=== PATIENT | female | born 1940 | race Caucasian/White ===

== ENCOUNTER 2025-03-03 13:42 | Outpatient (AMB) | payer MEDICARE, SELFPAY ==
--- NOTE | 2025-03-03 13:43 | MHC.OFFVIS ---
Vital Signs 03/03/25 13:46 Height 5 ft 6 in Weight 175 lb BMI 28.2 BP 147/60 H Blood Pressure Location Rt brachial Position Sitting Pulse 96 Pulse Source Pulse Oximeter Pulse Oximetry (%) 96 Oxygen Delivery Method Room Air Intake Visit Reasons: Abnormal CT Scan Allergies No Known Allergies Allergy (Verified 03/03/25 13:51) HPI Comments Details: The patient is here for pulmonary evaluation patient is an 84 year woman with a known history of worsening cough chest congestion for the last several months if not years. She is here with her daughter. The patient was initially evaluated locally in the [place] area for her respiratory complaints. She did undergo pulmonary function studies back in 2023 which I personally reviewed demonstrating a mild restrictive ventilatory defect in addition to moderate to severe diffusion impairment. Therefore she did undergo imaging studies. Back in November of 2024 she actually had a CT scan of the chest at [facility] which I personally reviewed demonstrating some interstitial lung disease primarily the bases left more than right with traction bronchiectasis and underlying pulmonary nodules measuring up to 8 mm in size. Overall she is doing little better her cough which tends to be productive in nature is decreasing amount. We do not have a sputum sample available at this time. Will go ahead and request blood work. In addition to start CPT with an Acapella valve. She does have difficulty sleeping at nighttime. Does have shortness shortness of breath. May have a component of nocturnal hypoxia. Will go ahead and request an overnight oximetry. Based on the findings on the CAT scan and also her ongoing cough and chest congestion at times brings up the possibility of microaspiration. Will go ahead and request a barium swallow to be done to further address the potential etiologies of the interstitial lung disease. She already saw Allergy and immunology and she had blood work done although I do not have the access to the blood work. Will do additional blood work at this time. The patient follow-up in 2-3 months after getting her overnight oximetry and CT scan of the chest to follow-up with the pulmonary nodules and also the barium swallow in the blood work. She will start using the CPT device with the Acapella valve to try to help clear the lungs. If she is able to provide a sputum I did put an order in in order for her to do so. [facility] Medical History (Updated 03/03/25 @ 21:09 by Lino Mcnamara MD) Asthma ILD (interstitial lung disease) Pulmonary nodules Bronchiectasis Review of Systems Const Denies fever(s) ENT Reports nasal discharge Card Denies chest pain and Reports dyspnea on exertion Resp Reports chest congestion, Reports cough and Reports dyspnea on exertion GI Reports dyspepsia and Reports heartburn Musc Reports abnormal gait and Reports myalgias Skin/Breast Denies rash Neuro Reports abnormal gait Jose/Lymph Reports no additional complaints Physical Exam Vital Signs: Last Vital Signs Pulse 96 03/03/25 13:46 BP 147/60 H 03/03/25 13:46 Pulse Ox 96 03/03/25 13:46 Oxygen Delivery Method Room Air 03/03/25 13:46 BMI result Body Mass Index 28.2 Const General: comfortable Limitations: physical limitations, ambulation with walker and wheelchair HEENT Head: Yes normocephalic Neck Neck: Yes supple Chest Chest palpation & inspection: normal inspection of the chest Resp Effort & Inspection: normal respiratory effort Auscultation: rales bilateral at the base and diminished lung sounds Cardio Heart sounds: S1 normal heart sound present, S2 normal heart sound present and Murmur heart sound present GI Palpation (GI): Soft to palpation Skin General skin exam: no rashes or lesions noted Extrem General: No clubbing and No cyanosis Office Procedures 6 Minute Walk Time:: 14:00 SPO2 % at rest: 95 Pulse at rest: 97 SPO2 % during excercise: 91 Pulse during excercise: 115 SPO2 % after excercise: 93 Pulse after excercise: 100 Distance in yards walked: 80 Marco Score: 0 Performance Observations:: Shavonne walked on level ground with the assistance of a walker, she walked with a slow gait. She maintained her SPO2 95-91% on room air for the entire walk. No supplemental O2 needed. [address] - 6 Minute Walk Assessment & Plan Assessment & Plan (1) Bronchiectasis: Code(s): J47.9 - Bronchiectasis, uncomplicated Category: Medical Qualifiers: Bronchiectasis type: uncomplicated Qualified Code(s): J47.9 - Bronchiectasis, uncomplicated (2) Pulmonary nodules: Code(s): R91.8 - Other nonspecific abnormal finding of lung field Category: Medical (3) ILD (interstitial lung disease): Code(s): J84.9 - Interstitial pulmonary disease, unspecified Category: Medical (4) Asthma: Code(s): J45.909 - Unspecified asthma, uncomplicated Category: Medical Qualifiers: Asthma severity: moderate Asthma persistence: persistent Asthma complication type: uncomplicated Qualified Code(s): J45.40 - Moderate persistent asthma, uncomplicated Plan CPT with acapella valve Overnight oximetry TIFFANY as needed Bloodwork, bloodgas CT chest to reassess pulmonary nodules Barium swallow Needs to sleep with head of bed elevated with bed risers at the head of the bed F/U 2 months Orders: Orders Hypersensitive Pneumonitis Prf Today J47.9 - Bronchiectasis, uncomplicated, R91.8 - Other nonspecific abnormal finding of lung field TAVO Reflex Titer and Pattern Today J47.9 - Bronchiectasis, uncomplicated, R91.8 - Other nonspecific abnormal finding of lung field Erythrocyte Sedimentation Rate Today J47.9 - Bronchiectasis, uncomplicated, R91.8 - Other nonspecific abnormal finding of lung field Overnight Pulse Oximetry Today FL barium swallow Today K21.9 - Gastro-esophageal reflux disease without esophagitis Venous Blood Gas Today J47.9 - Bronchiectasis, uncomplicated, R91.8 - Other nonspecific abnormal finding of lung field Complete Blood Count Auto Diff Today J47.9 - Bronchiectasis, uncomplicated, R91.8 - Other nonspecific abnormal finding of lung field Basic Metabolic Panel Today J47.9 - Bronchiectasis, uncomplicated, R91.8 - Other nonspecific abnormal finding of lung field Immunoglobulins,IgG IgA IgM Today J47.9 - Bronchiectasis, uncomplicated, R91.8 - Other nonspecific abnormal finding of lung field Immunoglobulin G Subclasses Today J47.9 - Bronchiectasis, uncomplicated, R91.8 - Other nonspecific abnormal finding of lung field Immunoglobulin E Today J47.9 - Bronchiectasis, uncomplicated, R91.8 - Other nonspecific abnormal finding of lung field AMB 6 minute walk Today J47.9 - Bronchiectasis, uncomplicated CT chest wo IV con 1 Month J47.9 - Bronchiectasis, uncomplicated, J84.9 - Interstitial pulmonary disease, unspecified, R91.8 - Other nonspecific abnormal finding of lung field Coding Level of Care Code New Pt Level 5 (35266) Diagnoses Bronchiectasis without complication J47.9 Bronchiectasis type: uncomplicated Pulmonary nodules R91.8 ILD (interstitial lung disease) J84.9 Moderate persistent asthma without complication J45.40 Asthma severity: moderate Asthma persistence: persistent Asthma complication type: uncomplicated CPT Codes Coding ([id number]) Time Spent (min) 60
[2025-03-03 13:46] VITALS: BP 147/60; PULSE 96; O2SAT 96; BMI 28.2
--- OUTSIDE RECORDS SUMMARY | 2025-03-03 14:51 | XMS_ITS | Data Portability ---
Author Organization [place] - [facility], Allergy Address [address] [address] Care Team Providers Care Air Conditioning Manager Name Role Phone FELIPE CROOK Primary Care Provider [phone] Assessment Encounter Date Assessment Date Assessment LastModified by Organization Details LastModified Time 06/23/2024 06/23/2024 Recommendations: Follow up with referring provider. Amplification, pending medical clearance. [email or web address] Not available 06/23/2024 09:29:56 10/13/2024 10/13/2024 84-year-old mykel fritz with history of GERD presents for evaluation of chronic productive cough x3 months. Posterior pharynx with mild erythema and cobblestoning. Fiberoptic laryngoscopy demonstrates cobblestoning without masses or obstruction. History and exam are consistent with GERD. Recommend Omeprazole 20 mg once daily for 6 weeks, reviewed administration instructions. Reviewed supportive measures for GERD. Will consider referral to gastroenterology for nursing home management if symptoms do not improve. The patient will follow up in 8 weeks for reevaluation. [email or web address] Not available 10/13/2024 13:25:30 01/05/2025 01/05/2025 84-year-old mykel fritz with GERD presents with [employer]ISTERED [employer] ASSOCIATE for evaluation of chronic productive cough x3 months. She reports significant symptom improvement with Omeprazole for 6 weeks, although she continues to report intermittent heartburn. She denies dysphagia, globus, itchy throat, or postnasal drip. Oropharyngeal exam is benign today. I will refer to gastroenterology for nursing home management as the symptoms are gastrointestinal in etiology. She will continue the PPI as needed in the interim. The patient will follow up in our office as needed. [email or web address] Not available 01/05/2025 14:13:19 Plan of Treatment Reminders Order Date Submit Date Provider Last Modified By Organization Details Last Modified Time Details Appointments Heari ng Test 2024 09:30A M Hearing Test Not available Not available Not available Estab lishe d 30 2024 10:00A M LIAM Mendez MD Not available Not available Not available Lab None recor ded. Referral gastr steve montes de oca ist refer ral 2024 025 [facility] Gastroenterology Scheduling Department, [address] [facility] [address], [place], [address], 01/12/2025 14:42:12 Procedures None recor ded. Surgeries None recor ded. Imaging None recor ded. Medication Orders omepr azole 20 mg capsu le,de layed relea se 2024 025 [id number], [address] [place], [place], [id number], 10/13/2024 13:19:18 Patient TargetsNo targets recorded. Patient InstructionsNo instructions recorded. Reason for Referral Supervisor Instrument Mechanics Referral for Gastroesophageal reflux disease without esophagitis Referring Physician: Lea Quintanilla, Otolaryngology, Encounter Date: 01/05/2025 Results Created Date Observation Date Name Description Value Unit Range Abnormal Flag Note LastModifiedBy Organization Detail LastModifiedTime 06/24/20 24 06/23/2024 audio gram No observ ation record ed. [email or web address] [facility] [address] [facility] [place], [address], 06/24/2024 15:37:55 Result Notes None recorded. Problems Name Problem SNOMED Code Status Onset Date Resolution Date Notes Provider Name and Address Organization Details Recorded Time Impacted cerumen of bilateral ears 83690128399 14129 Active 2017 Impacted cerumen, bilateral ; Note: Date Diagnosed : 07/10/2018 2:11 PM (H61.23) Not Available [facility] 02:31:48 Dizziness and giddiness 644730375 Active 2017 Dizziness and giddiness ; Note: Date Diagnosed : 07/10/2018 2:37 PM (R42) Not Available [facility] 4 02:31:52 Sensorine ural hearing loss of bilateral ears 356778144 Active 2017 Sensorine ural hearing loss, bilateral ; Note: Date Diagnosed : 07/10/2018 2:37 PM (H90.3) Not Available [facility] 4 02:32:05 Impacted cerumen 80881745 Active 2014 Impacted cerumen; CMS Risk: low risk CMS Treatment : new problem (to examiner) : no additiona l workup planned Not Available [facility] 4 02:31:48 Cough 89437911 Active 2024 LEA QUINTANILLA PA-C [address] [facility] [address], [place], [address] , [place] - [facility] 5 12:55:28 Gastroeso phageal reflux disease without esophagit is 368143643 Active 2024 LEA QUINTANILLA PA-C [address] [facility] [address] [address], [place], [address] , [place] [facility] 13:25:45 Dysphagia 51560561 Active 2024 LEA QUINTANILLA PA-C [address] [facility] [facility] [address], [place], [address] , [place] [facility] 13:37:10 Problem Notes None recorded. Procedures Surgical History Date Name Laterality Status Provider Name and Address Organization Details Recorded Time 10/13/2024 FOL_Reflux_ JMS completed LEA QUINTANILLA PA-C [address] [facility] [facility] [address] [address], [place], [address], [place] - [facility] 10/13/2024 13:22:17 06/23/2024 Air & Speech Audio with Tymps - 62728, 52635 & 95837 completed BUCKY TORREZ [address],[place] [address], [place], [address], [place] [facility] 06/23/2024 09:29:20 Imaging Results None recorded. Procedure Notes None recorded. Medical Equipment None Reported. Allergies Allergen ID Allergen Name Allergen Category Reaction Reaction Severity Criticality Documentation Date Start Date Code Code System Note Provider Name and Address Organization Details Recorded Time 55483 tetracycl ine medicatio n other Not available Not available 01/15/2024 39864 RxNorm React ion: Unkno wn; Not Available [facility] 01:05:21 Medications Name Sig Start Date Stop Date Status Note LastModified by Organization Details LastModified Time prednison e 10 mg tablet active Not Available Not Available Not Available clonidine 0.1 mg/24 hr weekly transderm al patch 2014 active Medicati on ID: [id number] Du ration Value: 28 Brand Name: clonidin e Send Method: E-Prescr ibed Sub s Allowed: subs OK Medic ationGen ericName : clonidin e Not Available Not Available Not Available albuterol sulfate 2.5 mg/3 mL (0.083 %) solution for nebulizat ion USE 3 ML VIA NEBULIZE R EVERY 6 HOURS NEEDED active Not Available Not Available No t Available cefpodoxi me 200 mg tablet TAKE 1 TABLET BY MOUTH EVERY 12 HOURS WITH FOOD FOR 7 DAYS 01/05 completed Not Available Not Available Not Available azithromy jericho 250 mg tablet 01/05 completed Not Available Not Available Not Available benzonata te 200 mg capsule TAKE 1 CAPSULE BY MOUTH THREE TIMES DAILY FOR 7 DAYS NEEDED FOR COUGH 01/05 completed Not Available Not Available Not Available amlodipin e 5 mg tablet TAKE 1 TABLET BY MOUTH DAILY active Not Available Not Available No t Available sulfameth oxazole 800 mg-trimet hoprim 160 mg tablet TAKE 1 TABLET BY MOUTH TWICE DAILY FOR 7 DAYS 01/05 completed Not Available Not Available Not Available lorazepam 0.5 mg tablet TAKE 1 TABLET BY MOUTH ONCE A DAY NEEDED FOR 30 DAYS active Not Available Not Available No t Available meclizine 25 mg tablet 01/05 completed Medicati on ID: [id number] D uration Value: 10 Brand Name: meclizin e Send Method: E-Prescr ibed Sub s Allowed: subs OK Speci al Instruct ion: take 1 tablet by mouth every 12 hours if needed M edicatio nGeneric Name: meclizin e Not Available Not Available Not Available benzonata te 100 mg capsule TAKE 1 CAPSULE BY MOUTH THREE TIMES DAILY FOR 10 DAYS NEEDED 01/05 completed Not Available Not Available Not Available omeprazol e 20 mg capsule,d elayed release TAKE ONE CAPSULE BY MOUTH EVERY DAY BEFORE A MEAL FOR 42 DAYS FOR REFLUX active Not Available Not Available No t Available methylpre dnisolone 4 mg tablets in a dose pack FOLLOW PACKAGE DIRECTIO NS 01/05 completed Not Available Not Available Not Available albuterol sulfate HFA 90 mcg/actua tion aerosol inhaler INHALE 2 PUFFS BY MOUTH EVERY 6 HOURS NEEDED FOR WHEEING/ SHORTNES S OF BREATH USE WITH SPACER CHAMBER active Not Available Not Available No t Available ondansetr on 4 mg disintegr ating tablet PLACE 1 TABLET ON THE TONGUE AND ALLOW TO DISSOLVE TWICE DAILY NEEDED FOR 7 DAYS 01/05 completed Not Available Not Available Not Available fluticaso ne propionat e 50 mcg/actua tion nasal spray,des pension SHAKE LIQUID AND USE 1 SPRAY IN EACH NOSTRIL TWICE DAILY active Not Available Not Available No t Available doxycycli ne hyclate 100 mg tablet TAKE 1 TABLET BY MOUTH TWICE DAILY FOR 10 DAYS active Not Available Not Available No t Available ramipril 10 mg capsule TAKE 2 CAPSULES BY MOUTH DAILY active Not Available Not Available No t Available amoxicill in 875 mg-potass ium clavulana te 125 mg tablet TAKE 1 TABLET BY MOUTH EVERY 12 HOURS FOR 10 DAYS 01/05 completed Not Available Not Available Not Available escitalop jorge 10 mg tablet 2014 active Medicati on ID: [id number] Du ration Value: 30 Brand Name: escitalo pram oxalate Send Method: E-Prescr ibed Sub s Allowed: subs OK Speci al Instruct ion: take 1.5 Tablet by oral route every day Medi cationGe nericNam e: escitalo pram oxalate Not Available Not Available Not Available escitalop jorge 20 mg tablet TAKE 1 TABLET BY MOUTH DAILY active Not Available Not Available No t Available rosuvasta tin 5 mg tablet TAKE 1 TABLET BY MOUTH EVERY DAY active Not Available Not Available No t Available rosuvasta tin 10 mg tablet TAKE 1 TABLET BY MOUTH EVERY DAY active Not Available Not Available No t Available nitrofura ntoin monohydra te/macroc rystals 100 mg capsule TAKE 1 CAPSULE BY MOUTH EVERY 12 HOURS WITH FOOD FOR 5 DAYS 01/05 completed Not Available Not Available Not Available OptiChamb er Saba [facility] spacer USE WITH INHALER DIRECTED active Not Available Not Available No t Available Vitals Date Recorded Body height Body mass index (BMI) Body weight Provider Name and Address Organization Details Last Updated DateTime 10/13/2024 165.1 cm 30.6 kg/m2 88671 g Gloria Turner [facility] 10/13/2024 12:51:45 Date Recorded Body height Body mass index (BMI) Body weight Provider Name and Address Organization Details Last Updated DateTime 01/05/2025 165.1 cm 30 kg/m2 53423.63 g Noni Shayan [facility] 01/05/2025 13:31:16 Date Recorded Body height Body mass index (BMI) Body weight Provider Name and Address Organization Details Last Updated DateTime 06/23/2024 165.1 cm 30.6 kg/m2 81991 g Doreen Reyes [facility] 06/23/2024 09:35:20 Social History None recorded. Functional Status None recorded. Mental Status None recorded. Family History Nothing Reported. Medical History No medical history recorded. Gynecological HistoryNo gynecological history recorded. Obstetrics History GPAL:G 0 P 0 0 0 0 Past Encounters Encounter ID Performer Location Encounter Start Date Encounter Closed Date Diagnosis/Indication Diagnosis SNOMED-CT Code Diagnosis ICD10 Code Diagnosis Note [id number] LIAM MCPHERSON MD [facility] [address] [address] 06/23/2024 09:04:42 06/23/2024 09:50:48 Sensorineural hearing loss of bilateral ears 443842505 H90.3 Hearing is stable and fairly symmetric. I discussed hearing aids but she was not interested today because she just went through a divorce and it is a difficult time. I recommend a repeat audio in 1 year and we will consider hearing aids at that time. Impacted c erumen of bilateral ears 6622699139 064325 H61.23 Recurrent Cerumen Impactions : Ears were meticulous ly cleaned bilaterall y today with a curette and suction. The patient tolerated this well and will follow up for repeat debridemen t per routine. [id number] BUCKY TORREZ [facility] [address] [address] 06/23/2024 09:28:58 06/23/2024 16:25:42 Sensorineural hearing loss of bilateral ears 596465397 H90.3 Audiologic al evaluation results: Right ear: Normal sloping to moderately -severe sensorineu ral hearing loss with excellent word recognitio n. Left ear: Normal sloping to severe sensorineu ral hearing loss with excellent word recognitio n. Tympanomet ry: Right Ear:Type A Left Ear:Type A [id number] LEA QUINTANILLA PA-C [facility] [address] [address] 10/13/2024 12:33:22 10/13/2024 13:18:07 Cough 46456770 R05.9 Gastroesop hageal reflux disease without esophagitis 263874014 K21.9 [id number] LEA QUINTANILLA PA-C [facility] [address] [address] 01/05/2025 13:05:55 01/05/2025 13:49:12 Gastroesophageal reflux disease without esophagitis 716818128 K21.9 Health Concerns Section Related Observation LastModified by Organization Detai ls LastModified Time None Recorded Concern Status LastModified by Organization Details LastModified Time None Recorded Advance Directives Directive None Recorded Payers Insurance Date Sequence Insurance Name Policy Number Policy Hwang Covered Member ID Hwang Member ID Guarantor Name 01/05/2025 1 [place] [employer] Shavonne Bruner [id number] Shavonne Bruner 01/05/2025 2 [employer]-[place] BL[place] ([place]) [id number] Shavonne Bruner [id number] Shavonne Bruner Notes Date Note Type Note Provider Name and Address Organization Details Recorded Time 06/23/2024 text/html Audiological Evaluation HPIReported bypatient.Hearing loss perceived:hearing loss in both ears: no differences noted between ears Onset:gradual Use of amplification or other hearing devices:none (does not use amplification) BUCKY TORREZ [address] [facility],[place] [address], [place], [address], [facility] - [facility] 06/23/2024 09:30:06 06/23/2024 text/html concern for righ t hearing lossShe presents for concern of right hearing loss. Audio showed normal sloping to severe SNHL AU very slightly worse in the mid range frequencies AU. We repeated an audio today which was stable. LIAM MCPHERSON MD [address] [facility],[place] [address], [place], [address], [facility] - [facility] 06/23/2024 09:52:07 10/13/2024 text/html 84yo female with history of GERD presents for evaluation of cough x2 months. This started after an upper respiratory infection 3 months ago. She has since trialed doxycycline x2, prednisone x2, and an albuterol inhaler without improvement. She reports heartburn 2 nights ago while eating marinara sauce. She tries to watch what she eats to avoid triggering her acid reflux. She endorses daily productive cough with excess mucus. She denies dysphagia, globus, itchy throat, postnasal drip. DHAVAL CHAU MD [address] [facility],[address], [address], [facility] 10/14/2024 09:35:02 01/05/2025 text/html 84-year-old fema le with history of GERD presents with [facility] for evaluation of chronic productive cough x3 months. She trialed omeprazole for 6 weeks and reports significant improvement in throat discomfort and coughing. She reports intermittent heartburn. She uses apple cider vinegar as needed for unknown reason. She denies dysphagia, globus, itchy throat, postnasal drip. MANDA LOPEZ MD [address] [facility] [facility] [address],[place] [address], [place], [address], [facility] 01/06/2025 08:56:22 OBGyn Episode No OBEpisode recorded.
--- OUTSIDE RECORDS SUMMARY | 2025-03-03 14:51 | XMS_ITS | Clinical Summary ---
Author Organization [facility] Address [address] [place] [address] Care Team Providers Care Sld Educational Aide Name Role Phone Sonu Shen MD Primary Care Provider [phone] Social History Tobacco Use Types Packs/Day Years Used Date Smoking Tobacco: Never Assessed Comments Unknown Sex and Gender Information Value Date Recorded Sex Assigned at Female 06/14/2023 10:24 AM EDT Legal Sex Female 4:36 PM EDT Gender Identity Female 06/14/2023 10:24 AM EDT Sexual Orientation Other 06/14/2023 10 :24 AM EDT Plan of Treatment Health Maintenance Due Date Last Done Comments DTaP/Tdap/Td Vaccines (1 - Tdap) 1960 Pneumococcal Vaccines 50+ (1 of 1 - PCV) 1991 Zoster (Shingles) Vaccine (1 of 2) 1991 DXA Bone Density (Females,Ag es 65 and older) 2006 RSV Vaccine 60 years and old er and Patients (1 - 1-dose 75+ series) 2016 COVID-19 Vaccine ( - 2023-2 5 season) 2024 Influenza Vaccine 04/03/2025 Hepatitis B Vaccines Aged Out No long er eligible based on patient's age to complete this topic Insurance [facility] COMMERCIAL on file BLUE CROSS-65 Care Teams Sld Educational Aide Relationship Specialty Start Date End Date oSnu Shen MD [place] [address] PCP - General 06/13/23
--- OUTSIDE RECORDS SUMMARY | 2025-03-03 14:51 | XMS_ITS | Clinical Summary ---
Author Organization [facility] Address [address] [place] [address] Phone Care Team Providers Care Continuous Linter Drier Operator Name Role Phone Felipe Crook MD Primary Care Provider [phone] Allergies No known active allergies Medications albuterol HFA (PROAIR HFA ; PROVENTIL HFA ; VENTOLIN HFA) 90 mcg/actuation inhaler INHALE 2 PUFFS BY MOUTH EVERY 6 HOURS NEEDED FOR WHEEING/ SHORTNESS OF BREATH USE WITH SPACER CHAMBER Active amLODIPine (NORVASC) 5 mg tablet Take 1 tablet (5 mg total) by mouth 1 (one) time each day. Active escitalopram (LEXAPRO) 20 mg tablet Take 1 tablet (20 mg total) by mouth 1 (one) time each day. 9 Active hydroCHLOROthia zide (HYDRODIURIL) 25 mg tablet 5 Active omeprazole (PriLOSEC) [address] capsule TAKE 1 CAPSULE BY MOUTH DAILY 0.5 TO 1 HOUR BEFORE BREAKFAST 5 Active ramipriL (ALTACE) 10 mg capsule Take 2 capsules (20 mg total) by mouth 1 (one) time each day. 9 Active rosuvastatin (CRESTOR) 10 mg tablet Take 1 tablet (10 mg total) by mouth 1 (one) time each day. Active Active Problems Problem Noted Date Diagnosed Date Osteopenia of both hips 02/25/2025 Hypertension 02/25/2025 Back pain 02/25/2025 Encounters Date Type Department Care Team Description 02/24/2025 3:54 PM EDT - 02/25/2025 5:09 PM EDT Emergency [facility] Emergency [address] [place] [address] Ginette Foster DO Landry, Jonathan P, MD Montano, Gary L, MD Left hip pain (Primary Dx); At risk for falling; Osteopenia of both hips Discharge Disposition: Home-Health Care Svc from Last 3 Months Surgical History Surgery Date Site/Laterality Comments KIDNEY STONE SURGERY PROCEDURE:KIDNEY STONE SURGERY SINUS SURGERY PROCEDURE:SINUS SURGERY Medical History Medical History Date Comments Back pain DX:Back pain Hypertension DX:Hypertension Kidney stone Vertigo Family History Medical History Relation Name Comments Aneurysm Father Heart disease Father Diabetes Mother Stroke Sister Relation Name Status Comments Father Mother Sister Social History Tobacco Use Types Packs/Day Years Used Date Smoking Tobacco: Never Smokeless Tobacco: Never Alcohol Use Standard Drinks/Week Comments No 0 (1 standard drink = 0.6 oz pur e alcohol) Comments Unknown Sex and Gender Information Value Date Recorded Sex Assigned at Not on file Legal Sex Female 3:24 AM EST Gender Identity Not on file Sexual Orientation Not on file Obstetrics History Last Filed Vital Signs Vital Sign Reading Time Taken Comments Blood Pressure 149/61 02/25/2025 3:52 PM EDT Pulse 78 02/25/2025 3:52 PM EDT Temperature 36.8 C (98.2 F) 02/25/2025 3:52 PM EDT Respiratory Rate 16 02/25/2025 3:52 PM EDT Oxygen Saturation 94% 02/25/2025 3:52 PM EDT Inhaled Oxygen Concentration - - Weight 79.4 kg (175 lb) 02/24/2025 4:01 PM EDT Height 167.6 cm (5' 6 ) 02/24/2025 4:01 PM EDT Body Mass Index 28.25 02/24/2025 4:01 PM EDT Plan of Treatment Health Maintenance Due Date Last Done Comments DTaP,Tdap,and Td Vaccines (1 - Tdap) 1960 Pneumococcal Vaccine: 50+ Years (1 of 1 - PCV) 1991 Zoster Vaccines (1 of 2) 1991 RSV Immunization Adult Patients (1 - 1-dose 75+ series) 2016 Cholesterol Screening (Lipid Panel) 08/06/2022 Depression Screening 08/06/2022 Falls Risk Assessment 08/06/2022 Medicare Annual Wellness Visit 08/06/2022 Social Influencers of Health Screening 08/06/2022 COVID-19 Vaccine (1 - 2023-2 5 season) 2024 Influenza Vaccine (#1) 2025 Hypertension/CHF/CAD Annual BMP Blood Test 02/25/2026 02/25/2025 Osteoporosis Screening (Bone Density Screening) 09/29/2031 09/29/2021, 01/07/2018 HIB Vaccines Aged Out No longer eligi ble based on patient's age to complete this topic HPV Vaccines Aged Out No longer eligi ble based on patient's age to complete this topic Hepatitis A Vaccines Aged Out No long er eligible based on patient's age to complete this topic Hepatitis B Vaccines Aged Out No long er eligible based on patient's age to complete this topic IPV Vaccines Aged Out No longer eligi ble based on patient's age to complete this topic MMR Vaccines Aged Out No longer eligi ble based on patient's age to complete this topic Meningococcal ACWY Vaccine Aged Out N o longer eligible based on patient's age to complete this topic Meningococcal B Vaccine Aged Out No l onger eligible based on patient's age to complete this topic RSV Immunization Patients Under 20 months Aged Out No longer eligible b ased on patient's age to complete this topic Varicella Vaccines Aged Out No longer eligible based on patient's age to complete this topic Procedures Procedure Name Priority Date/Time Associated Diagnosis Comments CBC WITH AUTO DIFFERENTIAL STAT 02/25/2025 5:24 AM EDT COMPREHENSIVE METABOLIC PANEL STAT 02/25/2025 5:24 AM EDT CBC AND DIFFERENTIAL STAT 02/25/2025 5:24 AM EDT XR HIP 2-3 VIEWS LEFT STAT 02/24/2025 6:20 PM EDT XR PELVIS 1-2 VIEWS STAT 02/24/2025 4 :36 PM EDT [facility] DEXA AXIAL SKELETON Routine 09/29/2021 10:06 AM EST Encounter for screening for osteoporosis from Last 3 Months or Most Recently Relevant to Health Maintenance Results * CBC auto differential (02/25/2025 5:24 AM EDT) [facility] WBC 6.0 4.8 - 10.8 K/mcL LAB [facility] RBC 4.10 3.80 - 4.80 M/mcL LAB HEMETOLOGY METHOD 02/25/2025 5:42 AM [facility] Hemoglobin 12.6 11.5 - 16.0 g/dL LAB HEMETOLOGY METHOD 02/25/2025 5:42 AM [facility] Hematocrit 39.4 35.0 - 47.0 % LAB HEMETOLOGY METHOD 02/25/2025 5:42 AM [facility] MCV 96.1 79.0 - 98.0 FL LAB HEMETOLOGY METHOD 02/25/2025 5:42 AM [facility] MCH 30.7 27.0 - 32.0 pcg LAB HEMETOLOGY METHOD 02/25/2025 5:42 AM [facility] MCHC 32.0 32.0 - 37.0 g/dL LAB HEMETOLOGY METHOD 02/25/2025 5:42 AM [facility] RDW 14.3 11.0 - 15.0 % LAB HEMETOLOGY METHOD 02/25/2025 5:42 AM [facility] Platelets 210 130 - 400 K/mcL LAB HEMETOLOGY METHOD 02/25/2025 5:42 AM [facility] MPV 10.9 7.0 - 11.0 FL LAB HEMETOLOGY METHOD 02/25/2025 5:42 AM [facility] NRBC 0.0 <1.0 % LAB HEMETOLOGY METHOD 02/25/2025 5:42 AM [facility] NRBC Absolute 0.00 <0.10 K/mcL LAB HEMETOLOGY METHOD 02/25/2025 5:42 AM [facility] Neutrophils Relative 39.3 % LAB HEMETOLOGY METHOD 02/25/2025 5:42 AM [facility] Lymphocytes Relative 44.0 % LAB HEMETOLOGY METHOD 02/25/2025 5:42 AM [facility] Monocytes Relative 10.4 % LAB HEMETOLOGY METHOD 02/25/2025 5:42 AM [facility] Eosinophils Relative 5.0 % LAB HEMETOLOGY METHOD 02/25/2025 5:42 AM [facility] Basophils Relative 1.0 % LAB HEMETOLOGY METHOD 02/25/2025 5:42 AM [facility] Immature Granulocytes Relative 0.3 % LAB HEMETOLOGY METHOD 02/25/2025 5:42 AM [facility] Neutrophils Absolute 2.35 1.50 - 7.00 K/mcL LAB HEMETOLOGY METHOD 02/25/2025 5:42 AM [facility] Lymphocytes Absolute 2.63 1.00 - 5.00 K/mcL LAB HEMETOLOGY METHOD 02/25/2025 5:42 AM [facility] Monocytes Absolute 0.62 0.20 - 1.00 K/mcL LAB HEMETOLOGY METHOD 02/25/2025 5:42 AM [facility] Eosinophils Absolute 0.30 0.00 - 0.50 K/mcL LAB HEMETOLOGY METHOD 02/25/2025 5:42 AM [facility] Basophils Absolute 0.06 0.00 - 0.20 K/mcL LAB HEMETOLOGY METHOD 02/25/2025 5:42 AM [facility] Immature Granulocytes Absolute 0.02 0.00 - 0.03 K/mcL LAB HEMETOLOGY METHOD 02/25/2025 5:42 AM [facility] Blood Venous blood specimen / Unknown Venipuncture / Unknown 02/25/2025 5:24 AM EDT 02/25/2025 5:29 AM EDT us Tate Nagy MD LAB BLOOD ORDERABLES Final Result [facility] [address] [place] [address], * (ABNORMAL) Comprehensive metabolic panel (02/25/2025 5:24 AM EDT) Sodium 139 133 - 145 mmol/L LAB CHEMISTRY METHOD 02/25/2025 6:05 AM [facility] Potassium 4.4 3.5 - 5.5 mmol/L LAB CHEMISTRY METHOD 02/25/2025 6:05 AM [facility] Chloride 105 96 - 110 mmol/L LAB CHEMISTRY METHOD 02/25/2025 6:05 AM [facility] CO2 27 21 - 32 mmol/L LAB CHEMISTRY METHOD 02/25/2025 6:05 AM [facility] Anion Gap 7 3 - 11 LAB CHEMISTRY METHOD 02/25/2025 6:05 AM [facility] Glucose 94 70 - 100 mg/dL LAB CHEMISTRY METHOD 02/25/2025 6:05 AM [facility] BUN 18 5 - 25 mg/dL LAB CHEMISTRY METHOD 02/25/2025 6:05 AM [facility] Creatinine 0.83 0.50 - 1.10 mg/dL LAB CHEMISTRY METHOD 02/25/2025 6:05 AM [facility] eGFR 70 >=60 mL/min/1. 73m2 LAB CHEMISTRY METHOD 02/25/2025 6:05 AM [facility] Comment:Calculation based on the Chronic Kidney Disease Epidemiology Collaboration (CKD-EPI) equation refit without adjustment for race. BUN/Creatinine Ratio 21.7 LAB CHEMISTRY METHOD 02/25/2025 6:05 AM [facility] Calcium 9.5 8.5 - 10.5 mg/dL LAB CHEMISTRY METHOD 02/25/2025 6:05 AM [facility] AST (SGOT) 24 10 - 42 unit/L LAB CHEMISTRY METHOD 02/25/2025 6:05 AM [facility] ALT (SGPT) 20 10 - 60 unit/L LAB CHEMISTRY METHOD 02/25/2025 6:05 AM [facility] Alkaline Phosphatase 82 42 - 121 unit/L LAB CHEMISTRY METHOD 02/25/2025 6:05 AM [facility] Total Protein 6.1 6.0 - 8.0 g/dL LAB CHEMISTRY METHOD 02/25/2025 6:05 AM [facility] Albumin 3.1(L) 3.2 - 5.0 g/dL LAB CHEMISTRY METHOD 02/25/2025 6:05 AM [facility] Total Bilirubin 0.4 0.0 - 1.4 mg/dL LAB CHEMISTRY METHOD 02/25/2025 6:05 AM [facility] Blood Venous blood specimen / Unknown Venipuncture / Unknown 02/25/2025 5:24 AM EDT 02/25/2025 5:29 AM EDT us Tate Nagy MD LAB BLOOD ORDERABLES Final Result [facility] [address] [place] [address], * XR Hip 2-3 Views Left (02/24/2025 6:20 PM EDT) Anatomical Region Laterality Modality Lower Extremities, Hip Left Radiograp hic Imaging 02/25/2025 8:26 AM EDT Impressions 02/25/2025 8:35 AM EDT No acute findings. Mild degenerative changes of the left hip. -------- FINAL REPORT -------- Dictated By: Donnie Ceja Dictated Date: 02/25/2025 08:26 ET Assigned Physician: Donnie Ceja Reviewed and Electronically Signed By: Donnie Ceja Signed Date: 02/25/2025 08:35 ET Workstation ID: [id number] Transcribed By: Self Edit Transcribed Date: 02/25/2025 08:26 ET Narrative 02/25/2025 8:35 AM EDT PROCEDURE: Radiographs of the left hip. HISTORY: atraumatic L hip pain, unable to ambulate. COMPARISON: None. FINDINGS: Bones are diffusely demineralized. No fracture or malalignment. Mild degenerative irregularity and small osteophytes in the hip joint without significant joint space loss. There are a few small ossifications or calcifications superior to the femoral neck. Some could represent intra-articular loose bodies. Atherosclerotic calcifications. Procedure Note Donnie Ceja MD - 02/25/2025 PROCEDURE: Radiographs of the left hip. HISTORY: atraumatic L hip pain, unable to ambulate. COMPARISON: None. FINDINGS: Bones are diffusely demineralized. No fracture or malalignment. Milddegenerative irregularity and small osteophytes in the hip joint withoutsignificant joint space loss. There are a few small ossifications orcalcifications superior to the femoral neck. Some could representintra-articular loose bodies. Atherosclerotic calcifications. IMPRESSION: No acute findings. Mild degenerative changes of the left hip. -------- FINAL REPORT -------- Dictated By: Donnie Ceja Dictated Date: 02/25/2025 08:26 ET Assigned Physician: Donnie Ceja Reviewed and Electronically Signed By: Donnie Ceja Signed Date: 02/25/2025 08:35 ET Workstation ID: [id number] Transcribed By: Self Edit Transcribed Date: 02/25/2025 08:26 ET us Agata FERRIS IMG XR PROCEDURES Final Result * XR Pelvis 1-2 Views (02/24/2025 4:36 PM EDT) Anatomical Region Laterality Modality Body, Pelvis Radiographic Pema ging 02/24/2025 5:27 PM EDT Impressions 02/24/2025 5:31 PM EDT FINDINGS/IMPRESSION: Osteopenia. Degenerative changes of both hips and lumbar spine. -------- FINAL REPORT -------- Dictated By: Shayy Le Dictated Date: 02/24/2025 17:27 ET Assigned Physician: Shayy Le Reviewed and Electronically Signed By: Shayy Le Signed Date: 02/24/2025 17:31 ET Workstation ID: [id number] Transcribed By: Self Edit Transcribed Date: 02/24/2025 17:27 ET Narrative 02/24/2025 5:31 PM EDT XR PELVIS 1-2 VIEWS INDICATION: pain TECHNIQUE: XR PELVIS 1-2 VIEWS COMPARISON: No priors available. Procedure Note Shayy Le MD - 02/24/2025 XR PELVIS 1-2 VIEWS INDICATION: pain TECHNIQUE: XR PELVIS 1-2 VIEWS COMPARISON: No priors available. IMPRESSION: FINDINGS/IMPRESSION: Osteopenia. Degenerative changes of both hips andlumbar spine. -------- FINAL REPORT -------- Dictated By: Shayy Le Dictated Date: 02/24/2025 17:27 ET Assigned Physician: Shayy Le Reviewed and Electronically Signed By: Shayy Le Signed Date: 02/24/2025 17:31 ET Workstation ID: [id number] Transcribed By: Self Edit Transcribed Date: 02/24/2025 17:27 ET us Ginette Foster DO IMG XR PROCEDURES Final R esult * [place] DEXA AXIAL SKELETON (09/29/2021 10:06 AM EST) Anatomical Region Laterality Modality Mammography 09/29/2021 8:53 AM EST Narrative 09/29/2021 10:[address] [facility] Diagnostic Imaging Department [address] [place] [id number] Patient: SHAVONNE NOLAN Kenia Ceja/Age/Sex: 1940 - 81 - F Unit#: [id number] Location/Status: SPDIMA/REG CLI Mnemonic[facility] Ordering Physician: FELIPE CROOK MD [place] Dexa Axial Skeleton - 09/29/[address]24 HISTORY: The patient is an 81-year-old postmenopausal female with clinical concern for metabolic bone disease. FINDINGS: Dual energy x-ray absorptiometry of the lumbar spine and femurs is performed. The mean bone mineral density at L1-2 is 1.005 gm/cm2 which is 86% of that of young normals and 98% of that of age matched controls. This yields a T- score of -1.3 and a Z-score of -0.1 which is diagnostic of osteopenia. The mean bone mineral density of the femurs bilaterally is 0.687 gm/cm2 which is 68% of that of young normals and 85% of that of age matched controls. This yields a T-score of -2.5 and a Z-score of -1.0 which is diagnostic of osteoporosis. The T-score of the right femoral neck is -3.2 and that of the left femoral neck is -2.5 which is diagnostic of osteoporosis. IMPRESSION: 1. Osteoporosis. There has been a decrease of 0.9% in bone mineral density in the lumbar spine since the prior examination of 01/17/2018. There has been a decrease of 3.3% in bone mineral density in the right femur and a decrease of 2.0% in bone mineral density in the left femur. 2. FRAX analysis yields a 10-year probability of major osteoporotic fracture of 35.1% and a 10-year probability of hip fracture of 14.2%. Code 38969 Dictating Physician: ROSA ROCHA MD Electronically Signed by: ROSA ROCHA MD Dic Date/Time: 09/29/21 1005 Sign date/Time: 09/29/21 1006 Procedure Note Rosa Rocha MD - 08/23/2022 [facility] Diagnostic Imaging Department [address] [place] [address] Patient: SHAVONNE NOLAN Kenia /Age/Sex: 1940 - 81 - F Unit#: [id number] Location/Status: [facility] Mnemonic/Ordering Site: [facility] Ordering Physician: FELIPE CROOK MD [facility] Dexa Axial Skeleton - 09/29/[address]24 HISTORY: The patient is an 81-year-old postmenopausal female withclinical concern for metabolic bone disease. FINDINGS: Dual energy x-ray absorptiometry of the lumbar spine and femursis performed. The mean bone mineral density at L1-2 is 1.005 gm/cm2 which is86% of that of young normals and 98% of that of age matched controls. This yieldsa T- score of -1.3 and a Z-score of -0.1 which is diagnostic of osteopenia. The mean bone mineral density of the femurs bilaterally is 0.687 gm/ne8swwwc is 68% of that of young normals and 85% of that of age matched controls.This yields a T-score of -2.5 and a Z-score of -1.0 which is diagnostic of osteoporosis. The T-score of the right femoral neck is -3.2 and that ofthe left femoral neck is -2.5 which is diagnostic of osteoporosis. IMPRESSION: 1. Osteoporosis. There has been a decrease of 0.9% in bone mineraldensity in the lumbar spine since the prior examination of 01/17/2018. There has lali decrease of 3.3% in bone mineral density in the right femur and a decreaseof 2.0% in bone mineral density in the left femur. 2. FRAX analysis yields a 10-year probability of major osteoporoticfracture of 35.1% and a 10-year probability of hip fracture of 14.2%. Code 15746 Dictating Physician: ROSA ROCHA MD Electronically Signed by: ROSA ROCHA MD Dic Date/Time: 09/29/21 1005 Sign date/Time: 09/29/21 1006 Felipe Crook MD IMG BI PROCEDURES Final Result from Last 3 Months or Most Recently Relevant to Health Maintenance Insurance BLUE CROSS - [place] MEDICARE ADVANTAGE Advance Directives * Full Code - Confirmed (Latest Code Status on File) Date Activated Date Inactivated Comments 02/24/2025 9:48 PM 02/25/2025 7:[address] [facility] was ascertained in the following way: Code status discussion: discussion with patient To update the patient's code status, place a code status order. Do not modify or discontinue any currently active code status orders. Care Teams Continuous Linter Drier Operator Relationship Specialty Start Date End Date Felipe Crook MD [address] [place] [id number] PCP - General Internal Medicine 02/06/19
--- OUTSIDE RECORDS SUMMARY | 2025-03-03 14:51 | XMS_ITS | Clinical Summary ---
Author Organization [facility] Address [address] [place] [address] Care Team Providers Care Counter Weigher Name Role Phone Sonu Shen MD Primary Care Provider Unavail able Allergies No known active allergies Medications Medication Sig Dispensed Refills Start Date End Date Status escitalopram (LEXAPRO) 20 MG tablet take 1 tablet by oral route every day 0 01/21/2019 Active ramipril (ALTACE) 10 MG capsule 0 01/21/2019 Active cholecalciferol (VITAMIN D3) 1000 units tablet Take 1,000 Units by mouth daily. 0 Active MAGNESIUM PO Take by mouth. 0 Active amLODIPine (NORVASC) tablet 2.5 mg Take 2.5 mg by mouth daily. 0 02/14/2020 Active Active Problems Problem Noted Date Diagnosed Date Carotid stenosis, right 02/06/2019 Family History Medical History Relation Name Comments Aneurysm Father Heart disease Father Diabetes Mother Stroke Sister Relation Name Status Comments Father Mother Sister Social History Tobacco Use Types Packs/Day Years Used Date Smoking Tobacco: Never Smokeless Tobacco: Never Alcohol Use Standard Drinks/Week Comments No 0 (1 standard drink = 0.6 oz pur e alcohol) Sex and Gender Information Value Date Recorded Sex Assigned at Not on file Gender Identity Not on file Sexual Orientation Not on file Last Filed Vital Signs Vital Sign Reading Time Taken Comments Blood Pressure 208/98 02/06/2019 3:08 PM EDT Pulse 74 02/26/2020 1:32 PM EDT Temperature 36.3 C (97.3 F) 02/26/2020 1:32 PM EDT Respiratory Rate 17 02/26/2020 1:32 PM EDT Oxygen Saturation - - Inhaled Oxygen Concentration - - Weight 79.4 kg (175 lb) 02/26/2020 1:32 PM EDT Height 165.1 cm (5' 5 ) 02/26/2020 1:32 PM EDT Body Mass Index 29.12 02/26/2020 1:32 PM EDT Plan of Treatment Health Maintenance Due Date Last Done Comments COVID-19 Vaccine (#1) 1940 Depression Screening 1953 Preventative Health Evaluation 1959 DTap / Tdap / Td (1 - Tdap) 1960 Shingrix-Zoster Vaccine (1 of 2) 1991 Fall Risk Assessment 2006 Osteoporosis Screening (DEXA Scan) 2006 Pneumococcal Vaccine (1 of 1 - PCV) 2006 RSV Adult > 60+ Yrs or Pregn ant (1 - 1-dose 75+ series) 2016 Influenza Vaccine (Season Ended) 2025 Hepatitis B Vaccines Aged Out No long er eligible based on patient's age to complete this topic RSV Ped < 20 months Aged Out No longe r eligible based on patient's age to complete this topic Care Teams Counter Weigher Relationship Specialty Start Date End Date Sonu Shen MD PCP - General Internal Medicine 02/06/19
[2025-03-03 14:55] VITALS: PULSE 97; O2SAT 95
== END 2025-03-03 14:36 | disposition home or self-care (01) ==
LOC: HO.HPS 13:43
PROVIDERS: PCP Internal Medicine; Visit Provider Hospitalist
DX: J47.9 Bronchiectasis, uncomplicated (principal); R91.8 Other nonspecific abnormal finding of lung field; J84.9 Interstitial pulmonary disease, unspecified; J45.40 Moderate persistent asthma, uncomplicated
CPT/HCPCS: 94618; 99205

== ENCOUNTER 2025-03-03 13:42 | Outpatient (REF) | payer MEDICARE, SELFPAY ==
[2025-03-03 15:03] LABS: MANUAL DIFF FLAG NO
[2025-03-03 15:10] LABS: Venous Blood Gas Refer to POC result
[2025-03-03 15:12] LABS: VBG HCO3 29 mmol/L (22-26); VBG O2 % Saturation 75.0 %
[2025-03-03 15:17] LABS: Hematocrit 41.3 % (37.0-47.0); Hemoglobin 13.2 g/dl (12.0-16.0); Imm Gran Abs Auto 0.02 X10*3/uL (0.00-0.03); Imm Gran Pct Auto 0.3 % (0.0-0.4); Lymphocytes Absolute Auto 2.2 X10*3/uL (1.2-4.9); Mean Corpuscular HGB Conc 32.0 g/dl (31.0-35.0); Mean Corpuscular Hemoglobin 30.2 pg (27.0-33.0); Mean Corpuscular Volume 94.5 fL (80.0-98.0); NRBC Abs Auto 0.000 X10*3/uL (0.0-0.012); NRBC Pct Auto 0.0 /100WBC (0.0-0.2); Platelet Count 251 X10*3/uL (160-400); Red Blood Count 4.37 X10*6/uL (4.20-5.50); White Blood Count 7.0 X10*3/uL (4.8-10.8)
[2025-03-03 15:43] LABS: Anion Gap 11 (12-20); Blood Urea Nitrogen 23 mg/dL (9-16); Calcium 9.6 mg/dL (8.4-10.2); Carbon Dioxide 28 mmol/L (22-29); Chloride 105 mmol/L (96-108); Estimated Glomerular Filt Rate > 60; Potassium 4.3 mmol/L (3.3-5.1); Sodium 140 mmol/L (135-145)
--- OUTSIDE RECORDS SUMMARY | 2025-03-03 15:43 | XMS_ITS ---
Author Name [facility] Organization Unknown Problems Problem Status Onset Date Problem Type Date of Resoluti on Source Stenosis of carotid artery, unspecified laterality active EncounterDiagnosisAct CCT Encounters Encounter Type Encounter Reason Primary Diagnosis Location Date Ambulatory [facility] 06/14/2023 Care Team Organization Name Specialty Phone Email Start Date End [facility] 06/14/2023 [facility]
[2025-03-05 11:24] LABS: Immunoglobulin G Subclass 1 408 mg/dL (382-929); Immunoglobulin G Subclass 2 250 mg/dL (241-700); Immunoglobulin G Subclass 3 41 mg/dL (22-178); Immunoglobulin G Subclass 4 8.3 mg/dL (4-86); Immunoglobulin G Total 756 mg/dL (600-1540)
[2025-03-08 19:14] LABS: Anti Nuclear Antibody Pattern Nuclear, Homogeneous; Anti Nuclear Antibody Screen POSITIVE (NEGATIVE); Anti Nuclear Antibody Titer 1:40 titer
[2025-03-11 13:39] LABS: Asperg fumigatus Precip Abs NEGATIVE (NEGATIVE); Micropoly faeni Abs NEGATIVE (NEGATIVE); Saccharo pora viridis Abs NEGATIVE (NEGATIVE); Thermo candidus Abs NEGATIVE (NEGATIVE)
== END 2025-03-03 13:43 | disposition home or self-care (01) ==
LOC: HO.LAB 13:42
PROVIDERS: PCP Internal Medicine; Visit Provider Hospitalist
DX: J47.9 Bronchiectasis, uncomplicated (principal); J84.9 Interstitial pulmonary disease, unspecified; R91.8 Other nonspecific abnormal finding of lung field; J45.40 Moderate persistent asthma, uncomplicated; K21.9 Gastro-esophageal reflux disease without esophagitis
CPT/HCPCS: 36415; 80048; 82784; 82785; 82803; 85025; 85652; 86038; 86039; 86331; 86606; 86609; 94618; 99202

== ENCOUNTER 2025-03-25 07:49 | Outpatient (REF) | payer MEDICARE, SELFPAY ==
--- NOTE | ~2025-03-25 | FL_ITS ---
EXAMINATION: XR BARIUM SWALLOW CLINICAL INFORMATION: Gastroesophageal reflux disease without esophagitis. COMPARISON: None available. TECHNIQUE: Oral thin barium was administered in supine and prone lying position. Patient is unable to stand for long time and paravertebral line down. FINDINGS: On oral administration of thin barium in prone and supine lying position there is normal propagation bolus from the oral cavity through the pharynx, esophagus into stomach without any obstruction, narrowing or stricture. No extrinsic compression seen. On prone view there is a small sliding hiatal hernia. No gastroesophageal reflux seen in supine and prone position. FLUOROSCOPY TIME: 57 seconds DOSE AREA PRODUCT: 666.4 uGy-m2 (microgray-meter squared) FL/FL barium swallow IMPRESSION: Unremarkable limited barium swallow exam. Electronically signed by: Rogelio Rivera MD 03/25/2025 10:10 AM EDT
--- OUTSIDE RECORDS SUMMARY | 2025-03-25 07:52 | XMS_ITS | Clinical Summary ---
Author Organization [facility] Address [address] [place] [address] Care Team Providers Care Floral Merchandiser Name Role Phone Sonu Shen MD Primary Care Provider [phone] Social History Tobacco Use Types Packs/Day Years [...] patient's age to complete this topic Insurance [facility] COMMERCIAL on file BLUE CROSS-65 Care Teams Floral Merchandiser Relationship Specialty Start Date End Date Sonu Shen MD [place] [address] PCP - General 06/13/23
--- OUTSIDE RECORDS SUMMARY | 2025-03-25 07:52 | XMS_ITS | Data Portability ---
Author Organization [place] - [facility], Allergy Address [address] [address] Care Team Providers Care Call Or Contact Centre Team Leader Name Role Phone FELIPE CROOK Primary Care Provider Assessment Encounter Date Assessment Date Assessment LastModified [...] GERD. Will consider referral to gastroenterology for halfway management if symptoms do not improve. The patient will follow up in 8 weeks for reevaluation. mboni Not available 10/13/2024 13:25:30 01/05/2025 01/05/2025 84-year-old mykel fritz with GERD presents with [facility] for evaluation of chronic productive cough x3 months. She reports significant symptom improvement with Omeprazole for 6 weeks, although she continues to report intermittent heartburn. She denies dysphagia, globus, itchy throat, or postnasal drip. Oropharyngeal exam is benign today. 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 Surgeries None recor ded. Imaging None recor ded. Medication Orders omepr azole 20 mg capsu le,de layed relea se 2024 025 [id number], [address], [place], [phone], 10/13/2024 13:19:18 Patient TargetsNo targets recorded. Patient InstructionsNo instructions recorded. Reason for Referral Ladler Referral for Gastroesophageal reflux disease without esophagitis Referring Physician: Lea Quintanilla, Otolaryngology, Encounter Date: 01/05/2025 Results Created Date Observation Date Name Description Value Unit Range Abnormal Flag Note LastModifiedBy Organization Detail LastModifiedTime 06/24/2006/23/2024 audio gram No observ ation record ed. [email or web address] [facility] [address] [facility] [address], [place], [address], 06/24/2024 15:37:55 Result Notes None recorded. Problems Name Problem SNOMED Code Status Onset Date Resolution Date Notes Provider Name and Address Organization Details Recorded Time Impacted cerumen 95125916 Active 2014 Impacted cerumen; CMS Risk: low risk CMS Treatment : new problem (to examiner) : no additiona l workup planned Not Available [facility] 02:31:48 Impacted cerumen of bilateral ears 14735133167 19394 Active 2017 Impacted cerumen, bilateral ; Note: Date Diagnosed : 07/10/2018 2:11 PM (H61.23) Not Available [facility] 4 02:31:48 Dizziness and giddiness 804557031 Active 2017 Dizziness and giddiness ; Note: Date Diagnosed : 07/10/2018 2:37 PM (R42) Not Available [facility] 4 02:31:52 Sensorine ural hearing loss of bilateral ears 214754985 Active 2017 Sensorine ural hearing loss, bilateral ; Note: Date Diagnosed : 07/10/2018 2:37 PM (H90.3) Not Available [facility] 4 02:32:05 Cough 81577705 Active 2024 LEA QUINTANILLA PA-C [address] [facility] [place] [address], [place], [address] , [place] - [facility] 12:55:28 Gastroeso phageal reflux disease without esophagit is 721837969 Active 2024 LEA QUINTANILLA PA-C [address] [facility] [place] [address], [place], [address] , [place] [facility] 13:25:45 Dysphagia 17195457 Active 2024 LEA QUINTANILLA PA-C [address] [facility] [place] [address], [place], [address] , [place] [facility] 13:37:10 Problem Notes None recorded. Procedures Surgical History Date Name Laterality Status Provider Name and Address Organization Details Recorded Time 10/13/2024 FOL_Reflux_ JMS completed LEA QUINTANILLA PA-C [address] [facility] [place] [address], [place], [address], [place] - [facility] [place] 10/13/2024 13:22:17 06/23/2024 Air & Speech Audio with Tymps - 06664, 15728 & 94500 completed BUCKY TORREZ [address] [place] [address], [place], [address], [place] [facility] 06/23/2024 09:29:20 Imaging Results None recorded. Procedure Notes None recorded. Medical Equipment None Reported. Allergies Allergen ID Allergen Name Allergen Category Reaction Reaction Severity Criticality Documentation Date Start Date Code Code System Note Provider Name and Address Organization Details Recorded Time 62941 tetracycl ine medicatio n other Not available Not available 01/15/2024 97094 RxNorm React ion: Unkno wn; Not Available [facility] 01:05:21 Medications Name Sig Start Date Stop Date Status Note LastModified by Organization Details LastModified Time prednison e 10 mg tablet active Not Available Not Available Not Available clonidine 0.1 mg/24 hr weekly transderm al patch 2014 [place]: 70137 Du ration Value: 28 Brand Name: clonidin [...] mg tablet 01/05 completed Medicati on ID: [id number] D uration Value: 10 Brand Name: meclizin [...] mg tablet 2014 [place]: 8[address]30 Du ration Value: 30 Brand Name: escitalo [...] Not Available Not Available [facility] spacer USE WITH INHALER DIRECTED active Not Available Not Available No t Available Vitals Date Recorded Body height Body mass index (BMI) Body weight Provider Name and Address Organization Details Last Updated DateTime 10/13/2024 165.1 cm 30.6 kg/m2 50657 g Gloria Turner [facility] 10/13/2024 12:51:45 Date Recorded Body height Body mass index (BMI) Body weight Provider Name and Address Organization Details Last Updated DateTime 01/05/2025 165.1 cm 30 kg/m2 13585.63 g Onni Shayan [facility] 01/05/2025 13:31:16 Date Recorded Body height Body mass index (BMI) Body weight Provider Name and Address Organization Details Last Updated DateTime 06/23/2024 165.1 cm 30.6 kg/m2 31730 g Doreen Reyes [facility] 06/23/2024 09:35:20 Social History None recorded. Functional Status None recorded. Mental Status None recorded. Family History Nothing Reported. Medical History No medical history recorded. Gynecological HistoryNo gynecological history recorded. Obstetrics History GPAL:G 0 P 0 0 0 0 Past Encounters Encounter ID Performer Location Encounter Start Date Encounter Closed Date Diagnosis/Indication Diagnosis SNOMED-CT Code Diagnosis ICD10 Code Diagnosis Note [id number] LIAM MCPHERSON MD [facility] [address] [address] 06/23/2024 09:04:42 06/23/2024 09:50:48 Sensorineural hearing loss of bilateral ears 080571329 H90.3 Hearing is stable and fairly symmetric. I discussed hearing aids but she was not interested today because she just went through a divorce and it is a difficult time. I recommend a repeat audio in 1 year and we will consider hearing aids at that time. Impacted c erumen of bilateral ears 8373295594 710804 H61.23 Recurrent Cerumen Impactions : Ears were meticulous ly cleaned bilaterall y today with a curette and suction. The patient tolerated this well and will follow up for repeat debridemen t per routine. [id number] BUCKY TORREZ [facility] [address] [address] 06/23/2024 09:28:58 06/23/2024 16:25:42 Sensorineural hearing loss of bilateral ears 292710348 H90.3 Audiologic al evaluation results: Right ear: Normal sloping to moderately -severe sensorineu ral hearing loss with excellent word recognitio n. Left ear: Normal sloping to severe sensorineu ral hearing loss with excellent word recognitio n. Tympanomet ry: Right Ear:Type A Left Ear:Type A [id number] LEA QUINTANILLA PA-C [facility] [address] [address] 10/13/2024 12:33:22 10/13/2024 13:18:07 Cough 70641128 R05.9 Gastroesop hageal reflux disease without esophagitis 097186719 K21.9 [id number] LEA QUINTANILLA PA-C [facility] [address] [address] 01/05/2025 13:05:55 01/05/2025 13:49:12 Gastroesophageal reflux disease without esophagitis 057055239 K21.9 Health Concerns Section Related Observation LastModified by Organization Detai ls LastModified Time None Recorded Concern Status LastModified by Organization Details LastModified Time None Recorded Advance Directives Directive None Recorded Payers Insurance Date Sequence Insurance Name Policy Number Policy Hwang Covered Member ID Hwang Member ID Guarantor Name 01/05/2025 1 [place] [employer] Shavonne Bruner [id number] Shavonne Bruner 01/05/2025 2 BC[employer]-[place] [employer]) [id number] Shavonne Bruner [id number] Shavonne Bruner Notes Date Note Type Note Provider Name and Address Organization Details Recorded Time 06/23/2024 text/html Audiological Evaluation HPIReported bypatient.Hearing loss perceived:hearing loss in both ears: no differences noted between ears Onset:gradual Use of amplification or other hearing devices:none (does not use amplification) BUCKY TORREZ [address] [facility],[place] [address], [place], [address], [facility] - [facility] 06/23/2024 09:30:06 06/23/2024 text/html concern for righ t hearing lossShe presents for concern of right hearing loss. Audio showed normal sloping to severe SNHL AU very slightly worse in the mid range frequencies AU. We repeated an audio today which was stable. LIAM MCPHERSON MD [address] [facility],[place] [address], [place], [address], [facility] - [facility] 06/23/2024 09:52:07 10/13/2024 text/html 84yo female with [...] throat, postnasal drip. DHAVAL CHAU MD [address] [facility],[address], [address], [facility] 10/14/2024 09:35:02 01/05/2025 text/html 84-year-old fema le with history of GERD presents with [facility] for evaluation of chronic productive cough x3 months. She trialed omeprazole for 6 weeks and reports significant improvement in throat discomfort and coughing. She reports intermittent heartburn. She uses apple cider vinegar as needed for unknown reason. She denies dysphagia, globus, itchy throat, postnasal drip. MANDA LOPEZ MD [address] [facility] [place] [address], [place], [address], [facility] 01/06/2025 08:56:22 OBGyn Episode No OBEpisode recorded.
--- OUTSIDE RECORDS SUMMARY | 2025-03-25 07:52 | XMS_ITS | Clinical Summary ---
Author Organization [facility] Address [address] [place] [address] Phone Care Team Providers Care Millinery Salesperson Name Role Phone Felipe Crook MD Primary Care Provider [phone] Allergies No known active allergies Medications albuterol [...] Encounters Date Type Department Care Team Description 03/23/2025 10:31 AM EDT - 03/23/2025 11:59 PM EDT Hospital Encounter [facility] MRI [address] [place] [phone] Pain Discharge Disposition: Home or Self Care 02/24/2025 3:54 PM EDT - 02/25/2025 5:[address] [facility] Emergency [address] [place] [phone] Ginette Foster DO Landry, Jonathan P, MD [...] series) 2016 Cholesterol Screening (Lipid Panel) 08/06/2022 Falls Risk Assessment 08/06/2022 Medicare Annual Wellness Visit 08/06/2022 Social Influencers of Health Screening 08/06/2022 COVID-19 Vaccine (1 - 2023-2 5 season) 2024 Depression Screening 09/03/2024 Influenza Vaccine (#1) 2025 Hypertension/CHF/CAD Annual BMP [...] Procedure Name Priority Date/Time Associated Diagnosis Comments MR HIP WO CONTRAST LEFT Routine 03/23/2025 12:19 PM EDT Pain CBC WITH AUTO DIFFERENTIAL STAT 02/25/2025 5:24 AM EDT COMPREHENSIVE METABOLIC PANEL STAT 02/25/2025 5:24 AM EDT CBC AND DIFFERENTIAL STAT 02/25/2025 5:24 AM EDT XR HIP 2-3 VIEWS LEFT STAT 02/24/2025 6:20 PM EDT XR PELVIS 1-2 VIEWS STAT 02/24/2025 4 :36 PM EDT MILTON DEXA AXIAL SKELETON Routine 09/29/2021 10:06 AM EST Encounter for screening for osteoporosis from Last 3 Months or Most Recently Relevant to Health Maintenance Results * MR Hip wo Contrast Left (03/23/2025 12:19 PM EDT) Anatomical Region Laterality Modality Lower Extremities, Hip Left Magnetic Resonance 03/24/2025 12:3 5 PM EDT Impressions 03/24/2025 12:40 PM EDT Bilateral femoral head osteonecrosis with acute or subacute subchondral fracture at the left femoral articular surface with minimal depression of the articular surface and moderate left hip effusion. -------- FINAL REPORT -------- Dictated By: BLAZE ALEJO Dictated Date: 03/24/2025 12:35 ET Assigned Physician: BLAZE ALEJO Reviewed and Electronically Signed By: BLAZE ALEJO Signed Date: 03/24/2025 12:40 ET Workstation ID: [id number] Transcribed By: Self Edit Transcribed Date: 03/24/2025 12:35 ET Narrative 03/24/2025 12:40 PM EDT PROCEDURE: Left hip MRI INDICATION: Pain TECHNIQUE: Multiplanar, multisequence MRI of the left hip Without contrast. COMPARISON: 02/24/2025. FINDINGS: There is bilateral femoral head osteonecrosis with acute or subacute minimally depressed subchondral fracture at the femoral head articular surface on the left. Moderate left hip effusion. Mild diffuse articular cartilage loss with degenerative marrow signal in the posterior superior aspect of the acetabulum. Circumferential labral degeneration without discrete tear. Diffuse muscle atrophy. Gluteus medius minimus and medius tendinosis without tear. Iliopsoas tendon and hamstring tendons are intact. Piriformis syndrome quadratus femoris musculature is normal. Large field view images demonstrate no other fracture or suspicious marrow replacing lesion. Degenerative facet changes are noted in the lower lumbar spine. The visualized intra-abdominal and pelvic structures are notable for fibroid uterus. Procedure Note Blaze Alejo MD - 03/24/2025 PROCEDURE: Left hip MRI INDICATION: Pain TECHNIQUE: Multiplanar, multisequence MRI of the left hip Withoutcontrast. COMPARISON: 02/24/2025. FINDINGS: There is bilateral femoral head osteonecrosis with acute or subacuteminimally depressed subchondral fracture at the femoral head articularsurface on the left. Moderate left hip effusion. Mild diffuse articular cartilage loss with degenerative marrow signal inthe posterior superior aspect of the acetabulum. Circumferential labral degeneration without discrete tear. Diffuse muscle atrophy. Gluteus medius minimus and medius tendinosiswithout tear. Iliopsoas tendon and hamstring tendons are intact. Piriformis syndrome quadratus femoris musculature is normal. Large field view images demonstrate no other fracture or suspicious marrowreplacing lesion. Degenerative facet changes are noted in the lowerlumbar spine. The visualized intra-abdominal and pelvic structures are notable forfibroid uterus. IMPRESSION: Bilateral femoral head osteonecrosis with acute or subacute subchondralfracture at the left femoral articular surface with minimal depression ofthe articular surface and moderate left hip effusion. -------- FINAL REPORT -------- Dictated By: BLAZE LAEJO Dictated Date: 03/24/2025 12:35 ET Assigned Physician: BLAZE ALEJO Reviewed and Electronically Signed By: BLAZE ALEJO Signed Date: 03/24/2025 12:40 ET Workstation ID: [id number] Transcribed By: Self Edit Transcribed Date: 03/24/2025 12:35 ET Felipe Crook MD IM MRI PROCEDURES Final Resul t * CBC auto differential (02/25/2025 5:24 AM EDT) WBC 6.0 4.8 - 10.8 /[facility] LAB HEMETOLOGY METHOD [facility]25 [facility] RBC 4.10 3.80 - 4.80 M/mcL LAB HEMETOLOGY METHOD 02/25/2025 5:42 AM [facility] Hemoglobin 12.6 11.5 - 16.0 g/dL LAB HEMETOLOGY METHOD 02/25/2025 5:42 AM [facility] Hematocrit 39.4 35.0 - 47.0 % LAB HEMETOLOGY METHOD 02/25/2025 5:42 AM [facility] MCV 96.1 79.0 - 98.0 FL LAB HEMETOLOGY METHOD 02/25/2025 5:42 AM [facility] MCH 30.7 27.0 - 32.0 pcg LAB HEMETOLOGY METHOD 02/25/2025 5:42 AM [facility] MCHC 32.0 32.0 - 37.0 g/dL LAB HEMETOLOGY METHOD 02/25/2025 5:42 AM [facility] RDW 14.3 11.0 - 15.0 % LAB HEMETOLOGY METHOD 02/25/2025 5:42 AM [facility] Platelets 210 130 - 400 K/mcL LAB HEMETOLOGY METHOD 02/25/2025 5:42 AM [facility] MPV 10.9 7.0 - 11.0 FL LAB HEMETOLOGY METHOD 02/25/2025 5:42 AM [facility] NRBC 0.0 <1.0 % LAB HEMETOLOGY METHOD 02/25/2025 5:42 AM [facility] NRBC Absolute 0.00 <0.10 K/mcL LAB HEMETOLOGY METHOD 02/25/2025 5:42 AM [facility] Neutrophils Relative 39.3 % LAB HEMETOLOGY METHOD 02/25/2025 5:42 AM [facility] Lymphocytes Relative 44.0 % LAB HEMETOLOGY METHOD [facility]/25[facility]2025 5:[facility] Monocytes Relative 10.4 % LAB HEMETOLOGY METHOD 02/25/2025 5:42 AM [facility] Eosinophils Relative 5.0 % LAB HEMETOLOGY METHOD 02/25/2025 5:42 AM [facility] Basophils Relative 1.0 % LAB HEMETOLOGY METHOD 02/25/2025 5:42 AM [facility] Immature Granulocytes Relative 0.3 % LAB HEMETOLOGY METHOD 02/25/2025 5:42 AM [facility] Neutrophils Absolute 2.35 1.50 - 7.00 K/mcL LAB HEMETOLOGY METHOD 02/25/2025 5:42 AM [facility] Lymphocytes Absolute 2.63 1.00 - 5.00 K/mcL LAB HEMETOLOGY METHOD 02/25/2025 5:42 AM [facility] Monocytes Absolute 0.62 0.20 - 1.00 K/mcL LAB HEMETOLOGY METHOD 02/25/2025 5:42 AM [facility] Eosinophils Absolute 0.30 0.00 - 0.50 K/mcL LAB HEMETOLOGY METHOD 02/25/2025 5:42 AM [facility] Basophils Absolute 0.06 0.00 - 0.20 K/mcL LAB HEMETOLOGY METHOD 02/25/2025 5:42 AM [facility] Immature Granulocytes Absolute 0.02 0.00 - 0.03 K/mcL LAB HEMETOLOGY METHOD 02/25/2025 5:42 AM [facility] Blood Venous blood specimen / Unknown Venipuncture / Unknown 02/25/2025 5:24 AM EDT 02/25/2025 5:29 AM EDT us Tate Nagy MD LAB BLOOD ORDERABLES Final Result [facility] [address] [place] [address], * (ABNORMAL) Comprehensive metabolic panel (02/25/2025 5:24 AM EDT) Sodium 139 133 - 145 mmol/L LAB CHEMISTRY METHOD 02/25/2025 6:05 AM [facility] Potassium 4.4 3.5 - 5.5 mmol/L LAB CHEMISTRY METHOD 02/25/2025 6:05 AM [facility] Chloride 105 96 - 110 mmol/L LAB CHEMISTRY METHOD 02/25/2025 6:05 AM [facility] CO2 27 21 - 32 mmol/L LAB CHEMISTRY METHOD 02/25/2025 6:05 AM [facility] Anion Gap 7 3 - 11 LAB CHEMISTRY METHOD 02/25/2025 6:05 AM [facility] Glucose 94 70 - 100 mg/dL LAB CHEMISTRY METHOD 02/25/2025 6:05 AM [facility] BUN 18 5 - 25 mg/dL LAB CHEMISTRY METHOD 02/25/2025 6:05 AM [facility] Creatinine 0.83 0.50 - 1.10 mg/dL LAB CHEMISTRY METHOD 02/25/2025 6:05 AM [facility] eGFR 70 >=60 mL/min/1. 73m2 LAB CHEMISTRY METHOD 02/25/2025 6:05 AM [facility] Comment:Calculation based on the Chronic Kidney Disease Epidemiology Collaboration (CKD-EPI) equation refit without adjustment for race. BUN/Creatinine Ratio 21.7 LAB CHEMISTRY METHOD 02/25/2025 6:05 AM [facility] Calcium 9.5 8.5 - 10.5 mg/dL LAB CHEMISTRY METHOD 02/25/2025 6:05 AM [facility] AST (SGOT) 24 10 - 42 unit/L LAB CHEMISTRY METHOD 02/25/2025 6:05 AM EDT [facility] ALT (SGPT) 20 10 - 60 unit/L LAB CHEMISTRY METHOD 02/25/2025 6:05 AM EDT [facility] Alkaline Phosphatase 82 42 - 121 unit/L LAB CHEMISTRY METHOD 02/25/2025 6:05 AM EDT [facility] Total Protein 6.1 6.0 - 8.0 g/dL LAB CHEMISTRY METHOD 02/25/2025 6:05 AM EDT [facility] Albumin 3.1(L) 3.2 - 5.0 g/dL LAB CHEMISTRY METHOD 02/25/2025 6:05 AM EDT [facility] Total Bilirubin 0.4 0.0 - 1.4 mg/dL LAB CHEMISTRY METHOD 02/25/2025 6:05 AM EDT [facility] Blood Venous blood specimen / Unknown Venipuncture / Unknown 02/25/2025 5:24 AM EDT 02/25/2025 5:29 AM EDT us Tate Nagy MD LAB BLOOD ORDERABLES Final Result [facility] [address] [place] [address], * XR Hip 2-3 Views Left (02/24/2025 [...] Signed Date: 02/25/2025 08:35 ET Workstation ID: [id number] Transcribed By: Self Edit Transcribed Date: 02/25/2025 [...] Signed Date: 02/25/2025 08:35 ET Workstation ID: [id number] Transcribed By: Self Edit Transcribed Date: 02/25/2025 08:26 ET Agata FERRIS IMG XR PROCEDURES Final Result [...] Signed Date: 02/24/2025 17:31 ET Workstation ID: [id number] Transcribed By: Self Edit Transcribed Date: 02/24/2025 [...] Signed Date: 02/24/2025 17:31 ET Workstation ID: [id number] Transcribed By: Self Edit Transcribed Date: 02/24/2025 17:27 ET us Ginette Foster DO IMG XR PROCEDURES Final R esult * MILTON DEXA AXIAL SKELETON (09/29/2021 10:06 AM EST) Anatomical Region Laterality Modality Mammography 09/29/2021 8:53 AM EST Narrative 09/29/2021 10:06 AM EST [facility] Diagnostic Imaging Department [address] [place] [address] Patient: SHAVONNE NOLAN./Age/Sex: 1940 - 81 - F Unit#: [id number] Location/Status: [facility]/REG I Mnemonic[facility] Ordering Physician: FELIPE CROOK MD [place] Dexa [...] probability of hip fracture of 14.2%. Code 22645 Dictating Physician: ROSA ROCHA MD Electronically Signed by: ROSA ROCHA MD Dic Date/Time: 09/29/21 1005 Sign date/Time: 09/29/21 1006 Procedure Note Rosa Rocha MD - 08/23/2022 [facility] Diagnostic Imaging Department [address] [place] [id number] Patient: SHAVONNE NOLAN Kenia HinesB./Age/Sex: 1940 - 81 - F Unit#: [id number] [facility]ing Site[facility] Ordering Physician: FELIPE CROOK MD [facility] Dexa Axial Skeleton - 09/29/21924 HISTORY: The [...] density of the femurs bilaterally is 0.687 gm/xu6pakbv is 68% of that of young normals [...] probability of hip fracture of 14.2%. Code 18979 Dictating Physician: ROSA ROCHA MD Electronically Signed by: ROSA ROCHA MD Dic Date/Time: 09/29/21 1005 Sign date/Time: 09/29/21 1006 Felipe Crook MD IMG BI PROCEDURES Final Result from Last 3 Months or Most Recently Relevant to Health Maintenance Insurance [employer] - [place] MEDICARE ADVANTAGE MEDICARE Advance Directives * Full Code - Confirmed (Latest Code Status on File) Date Activated Date Inactivated Comments 02/24/2025 9:48 PM 02/25/2025 7:[address] at[facility] was ascertained in the following way: Code status discussion: discussion with patient To update the patient's code status, place a code status order. Do not modify or discontinue any currently active code status orders. Care Teams Millinery Salesperson Relationship Specialty Start Date End Date Felipe Crook MD [address] [place] [id number] PCP - General Internal Medicine 02/06/19
--- OUTSIDE RECORDS SUMMARY | 2025-03-25 07:52 | XMS_ITS | Clinical Summary ---
Author Organization [facility] Address [address] [place] [address] Care Team Providers Care Mica Builder Name Role Phone Sonu Shen MD Primary [...] - 1-dose 75+ series) 2016 Influenza Vaccine (#1) 2025 Hepatitis B Vaccines Aged Out No long er eligible based on patient's age to complete this topic RSV Ped < 20 months Aged Out No longe r eligible based on patient's age to complete this topic Care Teams Mica Builder Relationship Specialty Start Date End Date Sonu Shen MD PCP - General Internal Medicine 02/06/19
== END 2025-03-25 07:50 | disposition home or self-care (01) ==
LOC: HO.XRAY 07:49
PROVIDERS: PCP Internal Medicine; Visit Provider Hospitalist
DX: K21.9 Gastro-esophageal reflux disease without esophagitis (principal)
CPT/HCPCS: 74220

== ENCOUNTER → 2025-03-25 07:51 | Outpatient (BNV) | payer MEDICARE, SELFPAY | PROVIDERS: PCP Internal Medicine; Visit Provider Radiology Diagnostic Radiology | DX: K21.9 Gastro-esophageal reflux disease without esophagitis (principal) | CPT/HCPCS: 74220 ==

== ENCOUNTER 2025-05-29 07:37 | Outpatient (REF) | payer MEDICARE, SELFPAY ==
--- NOTE | ~2025-05-29 | CT_ITS ---
CLINICAL HISTORY: J84.9 - Interstitial pulmonary disease, unspecified CT chest without contrast Comparison: None provided Findings: There is moderate coronary artery disease. There is a small hiatal hernia. There is peripheral reticulation with mild honeycombing at the lung bases. There is also bronchiectasis at the bases. There is a cyst in the upper pole of the left kidney. There are severe degenerative changes at the right glenohumeral joint. Postoperative changes are seen here as well. IMPRESSION: 1. Chronic interstitial lung disease with mild honeycombing at the lung bases. Findings compatible with idiopathic pulmonary fibrosis. 2. Small hiatal hernia. 3. Moderate coronary artery disease. This document has been electronically signed by: Richie Gardner MD on 05/30/2025 13:23:33
--- OUTSIDE RECORDS SUMMARY | 2025-05-29 07:40 | XMS_ITS | Data Portability ---
Author Organization [facility] Address [address] [place] [address] Care Team Providers Care Special Service Officer Name Role Phone FELIPE CROOK Primary Care Provider Assessment Encounter Date Assessment Date Assessment LastModified by Organization Details LastModified Time 06/30/2015 06/30/2015 Shavonne Bruner i s a 75 year old woman with low back pain radiating into both lower extremities, right is greater than left . On exam ,she has pain on flexion. MRI Lumbar spine shows Mild disc herniation and marked degenerative facet arthropathy L2-3 causing mild flattening of the dural sac and mild right-sided foraminal stenosis. Mild disc herniation and extensive degenerative facet arthropathy with anterior spondylolisthesis at L3-4 causing moderate central canal stenosis and mild right-sided foraminal stenosis. Moderate disc herniation and extensive degenerative facet arthropathy L4-5 causing mild central canal stenosis and moderate left-sided foraminal stenosis. Marked degenerative facet arthropathy L5-S1 without nerve root compression. Mild disc bulge and extensive degenerative facet arthropathy at L1-2 . Trial of Lumbar epidural steroid injections under fluroscopic guidance was recommended. The risks and benefits of the procedure were discussed in detail. She wishes to proceed. She will call for an appointment .She needs a bulk tank driver on the day of the procedure. [email or web address] Not available 06/30/2015 16:03:52 10/27/2024 10/27/2024 Shavonne Bruner i s a 84 year old woman with low back pain radiating into both lower extremities, right is greater than left . On exam ,she has pain on flexion. MRI Lumbar spine shows Mild disc herniation and marked degenerative facet arthropathy L2-3 causing mild flattening of the dural sac and mild right-sided foraminal stenosis. Mild disc herniation and extensive degenerative facet arthropathy with anterior spondylolisthesis at L3-4 causing moderate central canal stenosis and mild right-sided foraminal stenosis. Moderate disc herniation and extensive degenerative facet arthropathy L4-5 causing mild central canal stenosis and moderate left-sided foraminal stenosis. Marked degenerative facet arthropathy L5-S1 without nerve root compression. Mild disc bulge and extensive degenerative facet arthropathy at L1-2 . Trial of Lumbar epidural steroid injections under fluoroscopic guidance was recommended. The risks and benefits of the procedure were discussed in detail. She wishes to proceed. An appointment has been made .She needs a bulk tank driver on the day of the procedure. [email or web address] Not available 10/27/2024 14:03:25 12/24/2024 12/24/2024 Shavonne Bruner i s a 84 year old woman with low back pain radiating into both lower extremities, right is greater than left . On exam ,she has pain on flexion. MRI Lumbar spine shows Mild disc herniation and marked degenerative facet arthropathy L2-3 causing mild flattening of the dural sac and mild right-sided foraminal stenosis. Mild disc herniation and extensive degenerative facet arthropathy with anterior spondylolisthesis at L3-4 causing moderate central canal stenosis and mild right-sided foraminal stenosis. Moderate disc herniation and extensive degenerative facet arthropathy L4-5 causing mild central canal stenosis and moderate left-sided foraminal stenosis. Marked degenerative facet arthropathy L5-S1 without nerve root compression. Mild disc bulge and extensive degenerative facet arthropathy at L1-2 . She is here for a trial of Lumbar epidural steroid injections under fluoroscopic guidance . The risks and benefits of the procedure were discussed in detail. She wishes to proceed. She will follow up in four weeks [email or web address] Not available 12/24/2024 11:05:38 02/02/2025 02/02/2025 Shavonne Bruner i s a 84 year old woman with low back pain radiating into both lower extremities, right is greater than left . On exam ,she has pain on flexion. MRI Lumbar spine shows Mild disc herniation and marked degenerative facet arthropathy L2-3 causing mild flattening of the dural sac and mild right-sided foraminal stenosis. Mild disc herniation and extensive degenerative facet arthropathy with anterior spondylolisthesis at L3-4 causing moderate central canal stenosis and mild right-sided foraminal stenosis. Moderate disc herniation and extensive degenerative facet arthropathy L4-5 causing mild central canal stenosis and moderate left-sided foraminal stenosis. Marked degenerative facet arthropathy L5-S1 without nerve root compression. Mild disc bulge and extensive degenerative facet arthropathy at L1-2 . She is here for a follow up after a trial of Lumbar epidural steroid injections under fluoroscopic guidance . She reports good ongoing pain benefit. She was able to walk without her walker after the injection. She can follow up for a repeat injection in three months if needed. [email or web address] Not available 02/02/2025 10:49:22 Plan of Treatment Reminders Order Date Submit Date Provider Last Modified By Organization Details Last Modified Time Details Appointments None record ed. Lab None record ed. Referral None record ed. Procedures None record ed. Surgeries None record ed. Imaging None record ed. Medication Orders None record ed. Patient TargetsNo targets recorded. Patient Instructions Encounter Date Encounter Id Patient Instructions Last Modified By Organization Details Last Modified Time 06/30/2015 [id number] She was advised against bed rest lasting longer than four days and to continue activities as tolerated. [email or web address] Not available 06/30/2015 15:51:35 10/27/2024 [id number] She was advised against bed rest lasting longer than four days and to continue activities as tolerated. [email or web address] Not available 10/27/2024 14:02:29 12/24/2024 [id number] She was advised against bed rest lasting longer than four days and to continue activities as tolerated. [email or web address] Not available 12/24/2024 11:05:07 02/02/2025 [id number] She was advised against bed rest lasting longer than four days and to continue activities as tolerated. [email or web address] Not available 02/02/2025 10:48:01 Reason for Referral None Reported. Problems Name Problem SNOMED Code Status Onset Date Resolution Date Notes Provider Name and Address Organization Details Recorded Time Spinal stenosis of lumbar region [id number] Rosina jones MD [email or web address] , [address], [place], [address], [place] [facility] 5 16:04:15 Displacement of lumbar intervertebral disc without myelopathy [id number] Rosina jones MD [email or web address] , [address], [place], [address], [place] [facility] 5 16:04:15 Lumbosacral spondylosis without myelopathy 29986367 Active Ankit jones MD [address] [facility] [facility] , [address], [place], [address], [place] [facility] 5 16:04:15 Lumbosacral radiculitis 89834756 Active Ankit jones MD [address] [facility] , [address], [place], [address], [place] [facility] 5 16:04:15 Problem Notes None recorded. Procedures Surgical History Date Name Laterality Status Provider Name and Address Organization Details Recorded Time 12/25/19 25 Lumbar Epidural steroid injection under fluoroscopic guidance completed Ankit Carroll MD [address] [facility] , [address], [place], [address], [place] [facility] 12/24/2024 11:03:36 04/03/20 20 Shoulder joint surgery completed Kerry Muñoz [place] [facility] 10/27/2024 11:24:48 Other completed Renuka Leggett [place] [facility] 06/30/2015 14:47:15 Other completed Renuka Leggett [place] [facility] 06/30/2015 14:47:16 Imaging Results None recorded. Procedure Notes None recorded. Medical Equipment None Reported. Allergies No known drug allergies Medications Name Sig Start Date Stop Date Status Note LastModified by Organization Details LastModified Time prednisone 10 mg tablet 12/24 completed Not Available Not Available Not Available clonidine 0.1 mg/24 hr weekly transdermal patch active Not Available Not Available Not Available albuterol sulfate 2.5 mg/3 mL (0.083 %) solution for nebulizatio n USE 3 ML VIA NEBULIZER EVERY 6 HOURS NEEDED active Not Available Not Available No t Available cefpodoxime 200 mg tablet TAKE 1 TABLET BY MOUTH EVERY 12 HOURS WITH FOOD FOR 7 DAYS 12/24 completed Not Available Not Available Not Available amlodipine 2.5 mg tablet active Not Available Not Available Not Available amlodipine 5 mg tablet TAKE 1 TABLET BY MOUTH DAILY active Not Available Not Available No t Available sulfamethox azole 800 mg-trimetho prim 160 mg tablet TAKE 1 TABLET BY MOUTH TWICE DAILY FOR 7 DAYS 10/27 completed Not Available Not Available Not Available lorazepam 0.5 mg tablet TAKE 1 TABLET BY MOUTH ONCE A DAY NEEDED FOR 30 DAYS 10/27 completed Not Available Not Available Not Available omeprazole 20 mg capsule,del ayed release TAKE 1 CAPSULE BY MOUTH DAILY 0.5 TO 1 HOUR BEFORE BREAKFAST active Not Available Not Available No t Available diltiazem CD 120 mg capsule,ext ended release 24 hr active Not Available Not Available Not Available methylpredn isolone 4 mg tablets in a dose pack FOLLOW PACKAGE DIRECTION S 10/27 completed Not Available Not Available Not Available ondansetron 4 mg disintegrat ing tablet PLACE 1 TABLET ON THE TONGUE AND ALLOW TO DISSOLVE TWICE DAILY NEEDED FOR 7 DAYS active Not Available Not Available No t Available fluticasone propionate 50 mcg/actuati on nasal spray,suspe nsion SHAKE LIQUID AND USE 1 SPRAY IN EACH NOSTRIL TWICE DAILY active Not Available Not Available No t Available doxycycline hyclate 100 mg tablet TAKE 1 TABLET BY MOUTH TWICE DAILY FOR 10 DAYS 10/27 completed Not Available Not Available Not Available ramipril 10 mg capsule TAKE 2 CAPSULES BY MOUTH DAILY active Not Available Not Available No t Available escitalopra m 10 mg tablet active Not Available Not Available Not Available escitalopra m 20 mg tablet TAKE 1 TABLET BY MOUTH DAILY active Not Available Not Available No t Available rosuvastati n 10 mg tablet TAKE 1 TABLET BY MOUTH EVERY DAY active Not Available Not Available No t Available nitrofurant oin monohydrate /macrocryst als 100 mg capsule TAKE 1 CAPSULE BY MOUTH EVERY 12 HOURS WITH FOOD FOR 5 DAYS 10/27 completed Not Available Not Available Not Available EPA-DHA 720 active Not Available Not A vailable Not Available Vitals Date Recorded Heart rate Oxygen saturation Oxygen saturation in Arterial blood by Pulse oximetry Pain severity - 0-10 verbal numeric rating [Score] - Reported Body weight Body mass index (BMI) Body height Systolic And Diastolic Provider Name and Address Organization Details Last Updated DateTime 5 105 /min 93 % 93 % 1 83720.4 4 g 28.7 kg/m2 167.64 cm 183/76 mm[Hg] Kerry starr [place] [facility] 5 11:12:10 Date Recorded Body height Heart rate Oxygen saturation Oxygen saturation in Arterial blood by Pulse oximetry Systolic And Diastolic Provider Name and Address Organization Details Last Updated DateTime 5 167.64 cm 86 /min 94 % 94 % 162/73 mm[Hg] Angie Farfansanto [place] [facility] 5 09:38:54 Date Recorded Body height Oxygen saturation Oxygen saturation in Arterial blood by Pulse oximetry Pain severity - 0-10 verbal numeric rating [Score] - Reported Heart rate Systolic And Diastolic Provider Name and Address Organization Details Last Updated DateTime 5 167.64 cm 96 % 96 % 1 103 /min 138/60 mm[Hg] Amada Ghazala kay [place] - [facility] 5 09:56:12 Date Recorded Oxygen saturation Oxygen saturation in Arterial blood by Pulse oximetry Body height Heart rate Systolic And Diastolic Provider Name and Address Organization Details Last Updated DateTime 5 97 % 97 % 12356.5 2 cm 105 /min 174/84 mm[Hg] Renuka Tavareszier [place] [facility] 5 14:47:16 Social History Question Answer Notes LastModified by Organizat ion Details LastModified Time Tobacco Smoking Status Never [facility]oker Not Available [facility] 06/18/2020 03:16:10 Do You Have An Advance Directive? Yes Son Information not available 10/27/2024 Are You Blind Or Do You Have Difficulty Seeing? No Glasses Information not available 10/27/2024 In The 14 Days Before Symptom Onset, Have You Had Close Contact With A Laboratory-confir med COVID-19 While That Case Was Ill? No Information not available 10/27/2024 In The 14 Days Before Symptom Onset, Have You Had Close Contact With A Person Who Is Under Investigation For COVID-19 While That Person Was Ill? No Information not available 10/27/2024 Have You Been To An Area Known To Be High Risk For COVID-19? No Information not available 10/27/2024 Are You Deaf Or Do You Have Serious Difficulty Hearing? No Information not available 10/27/2024 Which Illicit Or Recreational Drugs Have You Used? No [id number] Information not available 06/18/2020 Education 2 Year College Information not available 10/27/2024 What Is The Highest Grade Or Level Of School You Have Completed Or The Highest Degree You Have Received? [id number] Information not available 10/27/2024 How Many Days Of Moderate To Strenuous Exercise, Like A Brisk Walk, Did You Do In The Last 7 Days? 0 Information not available 10/27/2024 Live Alone Or With Others? Alone Information not available 10/27/2024 Marital Status Informat ion not available 10/27/2024 What Is Your Relationship Status? Single Information not available 10/27/2024 Do You Have Difficulty Walking Or Climbing Stairs? Yes Information not available 10/27/2024 Sex: Unknown Functional Status Question Answer Note LastModified by Organizat ion Details LastModified Time Do you use any illicit or recreational drugs? No Information not available 10/27/2024 Do you or have you ever used any other forms of tobacco or nicotine? No Information not available 10/27/2024 What is your level of alcohol consumption? None [id number] Information not available 06/18/2020 Are you currently employed? No [id number] Information not available 06/18/2020 Do you have difficulty doing errands alone? Yes Information not available 10/27/2024 Do you have difficulty dressing, bathing, grooming, or toileting? Yes Information not available 10/27/2024 Mental Status Question Answer Note LastModified by Organizat ion Details LastModified Time Do you feel stressed (tense, restless, nervous, or anxious, or unable to sleep at night)? [id number] Information not available 10/27/2024 Do you have difficulty concentrating, remembering or making decisions? No Information no t available 10/27/2024 Family History Relationship Description Onset Age of this Age Resolved Age Notes LastModified by Organization Details LastModified Time Sister Cerebrovascu lar accident [email or web address] Not available 1 15:47:37 Mother Malignant neoplastic disease Not available 11:17:17 Father Heart disease Not available 11:17:58 Medical History Condition Response Coronary Artery Disease N Gout N Neuropathy/Neuralgia N Kidney Stones Y Hyperthyroidism N Hypothyroidism N Depression N COPD N Hepatitis C N Migrane N Diabetes N Anxiety Disorder Y Arthritis Y Seizures/Epilepsy N Hyperlipidemia Y Cancer N Stroke N Asthma N HIV/AIDS N Headache N Bipolar Disorder N GERD/Reflux Y High Cholesterol Y Liver Disease N Pulmonary Embolism N Fibromyalgia N Irritable Bowel Syndrome N Hypertension Y Osteoporosis Kidney Disease N Gynecological HistoryNo gynecological history recorded. Obstetrics History GPAL:G 0 P 0 0 0 0 Past Encounters Encounter ID Performer Location Encounter Start Date Encounter Closed Date Diagnosis/Indication Diagnosis SNOMED-CT Code Diagnosis ICD10 Code Diagnosis IMO Codes Diagnosis Note [id number] Ankit Carroll MD PAIN OFFICE [address] [place] [address] 06/30/2015 14:19:17 06/30/2015 16:04:51 Displacement of lumbar intervertebral disc without myelopathy 40218035 M51.26 Lumbosacra l radiculitis 53601612 M54.17 Lumbosacra l spondylosis without myelopathy 91359148 M47.817 Spinal von nosis of lumbar region 49084426 M48.06 [id number] Ankit Carroll MD PAIN OFFICE [address] [place] [address] 10/27/2024 10:54:33 10/27/2024 14:34:22 Lumbar radiculopathy 507825043 M54.16 Degenerati on of lumbar intervertebral disc 47565308 M51.369 Spinal von nosis of lumbar region 57461489 M48.062 [id number] Ankit Carroll MD PAIN OFFICE [address] [place] [address] 12/24/2024 09:22:33 12/24/2024 16:01:34 Lumbosacral radiculitis 54941868 M54.17 Lumbar radiculopathy 128 298231 M54.16 Degenerati on of lumbar intervertebral disc 46196769 M51.369 Spinal von nosis of lumbar region 91769878 M48.062 [id number] Ankit Carroll MD PAIN OFFICE [address] [place] [address] 02/02/2025 09:51:34 02/02/2025 15:23:49 Lumbar radiculopathy 285794713 M54.16 Degenerati on of lumbar intervertebral disc 67361965 M51.369 Spinal von nosis of lumbar region 04272921 M48.062 Health Concerns Section Related Observation LastModified by Organization Detai ls LastModified Time None Recorded Concern Status LastModified by Organization Details LastModified Time None Recorded Advance Directives Directive Y: son Payers Insurance Date Sequence Insurance Name Policy Number Policy Hwang Covered Member ID Hwang Member ID Guarantor Name 02/01/2025 2 [place] [id number] Shavonne Bruner [id number] Shavonne Bruner 02/01/2025 1 [place] [employer] Shavonne Bruner [id number] Shavonne Bruner Notes Date Note Type Note Provider Name and Address Organization Details Recorded Time 06/30/2015 text/html Pain Management L-spineReported by PatientHPIFor quality, patient reportsaching(she describes the pain as an aching pain. the pain has become better over the past few weeks. initially , the pain was sharp stabbing pain , getting in and out of the car aggravated her pain). For severity, patient reportsimproving,curre nt pain level 2/10, andworst pain 4/10. For duration, patient reportsconstant. For onset/timing, patient reportsgradual onsetandchronic. For alleviating factors, patient reportslying down. For aggravating factors, patient reportsflexion,standin g, andwalking. For associated symptoms, patient reportsno weakness,no numbness,no bladder compromise, andno bowel compromise. For radiation, patient reportsbilateral le(right is greater than left). For work related, patient reportsno. For adl (activities of daily living), patient reportswalking,sweepin g, andmopping(doing work in the kitchen aggravates her pain). For prior imaging, patient reportsmri(mri lumbar spine shows mild disc herniation and marked degenerative facet arthropathy l2-3 causing mild flattening of the dural sac and mild right-sided foraminal stenosis. mild disc herniation and extensive degenerative facet arthropathy with anterior spondylolisthesis at l3-4 causing moderate central canal stenosis and mild right-sided foraminal stenosis. moderate disc herniation and extensive degenerative facet arthropathy l4-5 causing mild central canal stenosis and moderate left-sided foraminal stenosis. marked degenerative facet arthropathy l5-s1 without nerve root compression. mild disc bulge and extensive degenerative facet arthropathy at l1-2 .). For prior emg, patient reportsnone. For previous surgery, patient reportsnone. For previous injections, patient reportsnone. For previous pt, patient reportsaggravated symptoms(she had physical therapy a total of 4 sessions and feels pt aggravated her pain.). For previous regular senior care provider, patient reportshelped temporarily. For location, (shavonne bruner is a 75 year old woman with complaints of low back pain which started in november 2014.). For context, (she has been helping with care of family members and feels this may have contributed to the start of her low back pain.). Ankit Carroll MD [address] [facility] , [address], [place], [address], [facility] 07/01/2015 09:03:03 10/27/2024 text/html Shavonne Bruner is a 84 year old woman with complaints of low back pain. She is accompanied by her COMMERCIAL LINES MANAGER today. She is using a walker. She states she has been having low back pain for many years. She hs no radiating pain in her legs but has weakness. She has asthma and respiratory tract infection for which she is on an antibiotic. She is using a nebulizer and feels some improvement. She has no history of bladder or bowel incontinence.Her most recent MRI was at [facility] shows multilevel degenerative disc changes with spinal stenosis most severe at L3-4 level.She has done phsyical therapy in the past which did not help her pain Ankit Carroll MD [address] [facility] , [address], [place], [address], [facility] [employer] [facility] 10/27/2024 14:48:18 12/24/2024 text/html She is here for a trial of lumbar epidural steroid injection under fluoroscopic guidance. Ankit Carroll MD [address] [facility] , [address], [place], [address], [facility] 12/24/2024 16:11:39 02/02/2025 text/html Shavonne Bruner is a 84 year old woman with complaints of bilateral shoulder pain. She is here for a follow up after a lumbar epidural steroid injection under fluoroscopic guidance. She reports 90% pain relief which is ongoing. She is walking better . She is complaining of occasionally achiness in her low back . She has no history of bladder or bowel incontinence.She uses a walker at home and is in a wheelchair today for convenience of coming to the office quicker. She states she was able to walk without her walker after the injection. She had some bedwetting at night after the injection which has resolved now. She has no incontinence of bowel. Ankit Carroll MD [address] [facility] , [address], [place], [address], [facility] - [facility] 02/02/2025 15:47:36 OBGyn Episode No OBEpisode recorded.
--- OUTSIDE RECORDS SUMMARY | 2025-05-29 07:40 | XMS_ITS | Clinical Summary ---
Author Organization [facility] Address [address] [place] [address] Care Team Providers Care Commodities Manager Name Role Phone Sonu Shen MD Primary Care Provider [phone] Social History Tobacco Use Types Packs/Day Years Used Date Smoking Tobacco: Never Assessed Comments Unknown Sex and Gender Information Value Date Recorded Sex Assigned at Female 06/14/2023 10:24 AM EDT Legal Sex Female 4:36 PM EDT Gender Identity Female 06/14/2023 10:24 AM EDT Sexual Orientation Other 06/14/2023 10 :24 AM EDT Plan of Treatment Health Maintenance Due Date Last Done Comments Advance Care Planning 1940 DTaP/Tdap/Td Vaccines (1 - Tdap) 1960 Pneumococcal Vaccines 50+ (1 of 1 - PCV) 1991 Zoster (Shingles) Vaccine (1 of 2) 1991 DXA Bone Density (Females,Ag es 65 and older) 2006 RSV Vaccine 60 years and old er and Patients (1 - 1-dose 75+ series) 2016 Influenza Vaccine 04/03/2025 COVID-19 Vaccine ( - 2023-2 5 season) 2025 Hepatitis B Vaccines Aged Out No long er eligible based on patient's age to complete this topic Insurance [facility] [employer] on file [place] [id number] Care Teams Commodities Manager Relationship Specialty Start Date End Date [place] [address] PCP - General 06/13/23
--- OUTSIDE RECORDS SUMMARY | 2025-05-29 07:40 | XMS_ITS | Clinical Summary ---
Author Organization [facility] Address [address] [place] [address] Phone Care Team Providers Care Truck Driver Heavy Name Role Phone Felipe Crook MD Primary Care Provider [phone] Allergies No known active allergies Medications albuterol [...] - 03/23/2025 11:59 PM EDT Hospital Encounter [facility] MRI [address] [place] [address] Pain Discharge Disposition: Home or Self Care from Last 3 Months Surgical History Surgery [...] 08/06/2022 Social Influencers of Health Screening 08/06/2022 Depression Screening 09/03/2024 COVID-19 Vaccine (1 - 2023-2 5 season) 2025 Influenza Vaccine (#1) 2025 Hypertension/CHF/CAD Annual BMP [...] LEFT Routine 03/23/2025 12:19 PM EDT Pain COMPREHENSIVE METABOLIC PANEL STAT 02/25/2025 5:24 AM EDT MILTON DEXA AXIAL SKELETON Routine 09/29/2021 [...] effusion. -------- FINAL REPORT -------- Dictated By: MISAEL ALEJO Dictated Date: 03/24/2025 12:35 ET Assigned Physician: MISAEL ALEJO Reviewed and Electronically Signed By: MISAEL ALEJO Signed Date: 03/24/2025 12:40 ET Workstation ID: [id number] Transcribed By: Self Edit Transcribed Date: 03/24/2025 [...] are notable for fibroid uterus. Procedure Note Misael Alejo MD - 03/24/2025 PROCEDURE: Left hip [...] effusion. -------- FINAL REPORT -------- Dictated By: MISAEL ALEJO Dictated Date: 03/24/2025 12:35 ET Assigned Physician: MISAEL ALEJO Reviewed and Electronically Signed By: MISAEL ALEJO Signed Date: 03/24/2025 12:40 ET Workstation ID: [id number] Transcribed By: Self Edit Transcribed Date: 03/24/2025 12:35 ET Felipe Crook MD IMG MRI PROCEDURES Final Resul t * (ABNORMAL) Comprehensive metabolic panel (02/25/2025 5:24 AM EDT) Sodium 139 133 - 145 mmol/L LAB CHEMISTRY METHOD 02/25/2025 6:05 AM [facility] Potassium 4.4 3.5 - 5.5 mmol/L LAB CHEMISTRY METHOD 02/25/2025 6:05 AM [facility] Chloride 105 96 - 110 mmol/L LAB CHEMISTRY METHOD 02/25/2025 6:05 AM [facility] CO2 27 21 - 32 mmol/L LAB CHEMISTRY METHOD 02/25/2025 6:05 AM [facility] Anion Gap 7 3 - 11 LAB CHEMISTRY METHOD 02/25/2025 6:05 AM [facility] Glucose 94 70 - 100 mg/dL LAB CHEMISTRY METHOD 02/25/2025 6:05 AM [facility] BUN 18 5 - 25 mg/dL LAB CHEMISTRY METHOD 02/25/2025 6:05 AM [facility] Creatinine 0.83 0.50 - 1.10 mg/dL LAB CHEMISTRY METHOD 02/25/2025 6:05 AM [facility] eGFR 70 >=60 mL/min/1. 73m2 LAB CHEMISTRY METHOD 02/25/2025 6:05 AM [facility] Comment:Calculation based on the Chronic Kidney Disease Epidemiology Collaboration (CKD-EPI) equation refit without adjustment for race. BUN/Creatinine Ratio 21.7 LAB CHEMISTRY METHOD 02/25/2025 6:05 AM [facility] Calcium 9.5 8.5 - 10.5 mg/dL LAB CHEMISTRY METHOD 02/25/2025 6:05 AM [facility] AST (SGOT) 24 10 - 42 unit/L LAB CHEMISTRY METHOD 02/25/2025 6:05 AM [facility] ALT (SGPT) 20 10 - 60 unit/L LAB CHEMISTRY METHOD 02/25/2025 6:05 AM [facility] Alkaline Phosphatase 82 42 - 121 unit/L LAB CHEMISTRY METHOD 02/25/2025 6:05 AM [facility] Total Protein 6.1 6.0 - 8.0 g/dL LAB CHEMISTRY METHOD 02/25/2025 6:05 AM [facility] Albumin 3.1(L) 3.2 - 5.0 g/dL LAB CHEMISTRY METHOD 02/25/2025 6:05 AM [facility] Total Bilirubin 0.4 0.0 - 1.4 mg/dL LAB CHEMISTRY METHOD 02/25/2025 6:05 AM [facility] Blood Venous blood specimen / Unknown Venipuncture / Unknown 02/25/2025 5:24 AM EDT 02/25/2025 5:29 AM EDT us Tate Nagy MD LAB BLOOD ORDERABLES Final Result [facility] [address] [place] [address], * MILTON DEXA AXIAL SKELETON (09/29/2021 10:06 AM EST) Anatomical Region Laterality Modality Mammography 09/29/2021 8:53 AM EST Narrative 09/29/2021 10:06 AM EST [facility] Diagnostic Imaging Department [address] [place] [id number] Patient: RILEY NOLAN Kenia Ceja/Age/Sex: 1940 - 81 - F Unit#: [id number] Location/Status: [facility] CLI Mnemonic/Ordering Site: [facility] Ordering Physician: FELIPE CROOK MD [place] Dexa [...] probability of hip fracture of 14.2%. Code 56624 Dictating Physician: ROSA ROCHA MD Electronically Signed by: ROSA ROCHA MD Dic Date/Time: 09/29/21 1005 Sign date/Time: 09/29/21 1006 Procedure Note Rosa Rocha MD - 08/23/2022 [facility] Diagnostic Imaging Department [address] [place] [address] Patient: RILEY NOLAN Kenia HinesB./Age/Sex: 1940 - 81 - F Unit#: [id number] Location/Status: [facility] Ordering Physician: FELIPE CROOK MD [...] density of the femurs bilaterally is 0.687 gm/[id number] is 68% of that of young normals [...] probability of hip fracture of 14.2%. Code 01604 Dictating Physician: ROSA ROCHA MD Electronically Signed by: ROSA ROCHA MD Dic Date/Time: 09/29/21 1005 Sign date/Time: 09/29/21 1006 Felipe Crook MD [facility] [place] PROCEDURES Final Result from Last 3 Months or Most Recently Relevant to Health Maintenance Insurance MEDICARE [facility] Advance Directives * Full Code - Confirmed (Latest Code Status on File) Date Activated Date Inactivated Comments 02/24/2025 9:48 PM 02/25/2025 7:[address] [facility] was ascertained in the following way: Code status discussion: discussion with patient To update the patient's code status, place a code status order. Do not modify or discontinue any currently active code status orders. Care Teams Truck Driver Heavy Relationship Specialty Start Date End Date Felipe Crook MD [address] [place] [id number] PCP - General Internal Medicine 02/06/19
--- OUTSIDE RECORDS SUMMARY | 2025-05-29 07:40 | XMS_ITS | Clinical Summary ---
Author Organization [facility] Address [address] [place] [address] Care Team Providers Care Correctional Supervisor Name Role Phone Sonu Shen MD Primary [...] age to complete this topic Care Teams Correctional Supervisor Relationship Specialty Start Date End Date Sonu Shen MD PCP - General Internal Medicine 02/06/19
== END 2025-05-29 07:38 | disposition home or self-care (01) ==
LOC: HO.CT 07:37
PROVIDERS: PCP Internal Medicine; Visit Provider Hospitalist
DX: J98.4 Other disorders of lung (principal); J47.9 Bronchiectasis, uncomplicated; R91.8 Other nonspecific abnormal finding of lung field
CPT/HCPCS: 71250

== ENCOUNTER 2025-07-08 09:28 | Outpatient (AMB) | payer MEDICARE, SELFPAY ==
--- NOTE | 2025-07-08 09:53 | A.OFFVIS_ITS ---
Vital Signs 07/08/25 09:54 Height 5 ft 6 in BMI Reason not done Patient refused/unable BP 154/66 H Blood Pressure Location Lt brachial Position Sitting Pulse 93 Pulse Source Pulse Oximeter Pulse Oximetry (%) 95 Oxygen Delivery Method Room Air Intake Visit Reasons: abnormal CT Medical Staff Services Manager Required: No Accompanied by: Other Relationship Allergies No Known Allergies Allergy (Verified 07/08/25 09:56) HPI Comments Details: The patient is an 85 year woman with a known history of worsening cough chest congestion for the last several months if not years. She is here with her daughter. The patient was initially evaluated locally in the [place] area for her respiratory complaints. She did undergo pulmonary function studies back in 2023 which I personally reviewed demonstrating a mild restrictive ventilatory defect in addition to moderate to severe diffusion impairment. Therefore she did undergo imaging studies. Back in November of 2024 she actually [address] a [address] scan of the chest at [facility] which I personally reviewed demonstrating some interstitial lung disease primarily the bases left more than right with traction bronchiectasis and underlying pulmonary nodules measuring up to 8 mm in size. Overall she is doing little better her cough which tends to be productive in nature is decreasing amount. We do not have a sputum sample available at this time. Will go ahead and request blood work. In addition to start CPT with an Acapella valve. She does have difficulty sleeping at nighttime. Does have shortness shortness of breath. May have a component of nocturnal hypoxia. Will go ahead and request an overnight oximetry. Based on the findings on the CAT scan and also her ongoing cough and chest congestion at times brings up the possibility of microaspiration. Will go ahead and request a barium swallow to be done to further address the potential etiologies of the interstitial lung disease. She already saw Allergy and immunology and she had blood work done although I do not have the access to the blood work. Will do additional blood work at this time. The patient follow-up in 2-3 months after getting her overnight oximetry and CT scan of the chest to follow-up with the pulmonary nodules and also the barium swallow in the blood work. She will start using the CPT device with the Acapella valve to try to help clear the lungs. If she is able to provide a sputum I did put an order in in order for her to do so. 07/08/2025 the patient is here for pulmonary follow-up visit. Overall the patient has been doing okay. Breathing [place] she is about the same. She does have dyspnea with activity. Currently she is on a wheelchair. The patient did undergo a CT scan of the chest which I personally reviewed. Her pulmonary nodules have subsided significantly. But it appears that based on her CT scan that I did review from November in the CAT scan that she had now that some of the pulmonary fibrosis are bit worse. In addition to the fibrosis she does have traction bronchiectasis related to the fibrotic changes. Currently she is going to undergo her carotid endarterectomy surgery soon. The patient does have a slightly elevated baseline pCO2 51 mmHg in addition to that has underlying pulmonary fibrosis both can resulting worsening gas exchange with anesthesia and surgery. Therefore the patient may be able to proceed with her carotid endarterectomy at this time from a pulmonary standpoint understanding that she is high risk for respiratory failure, pneumonia, atelectasis. I would recommend following end-tidal CO2 and pulse oximetry throughout her perioperative period. After she gets her carotid surgery done she is likely going to need a hip surgery as well. Then, the patient does have increased risk for perioperative pulmonary complications and having surgery needs to be weighed with risks and benefits. Based on the fact that her pulmonary fibrosis seems to be little bit more progress we did talk about considering antifibrotic agents. We did do a blood work evaluation to assess for connective tissue diseases but it was all n egative except for slightly elevated TAVO of 1-40 which was not a significant ratio. We also talked about the importance of reflux disease making sure that she sleeps with a wedge pillow which she will do at this time. [facility] Medical History (Updated 07/08/25 @ 10:09 by Lino Mcnamara MD) Pre-op chest exam Asthma ILD (interstitial lung disease) Pulmonary nodules Bronchiectasis Social History (Updated 07/08/25 @ 09:58 by Divine Perez CMA) Patient Tobacco Use Status: Never used Tobacco Review of Systems Const Denies fever(s) ENT Reports nasal discharge Card Denies chest pain and Reports dyspnea on exertion Resp Reports chest congestion, Reports cough and Reports dyspnea on exertion GI Reports dyspepsia and Reports heartburn Musc Reports abnormal gait and Reports myalgias Skin/Breast Denies rash Neuro Reports abnormal gait Jose/Lymph Reports no additional complaints Physical Exam Vital Signs: Last Vital Signs Pulse 93 07/08/25 09:54 BP 154/66 H 07/08/25 09:54 Pulse Ox 95 07/08/25 09:54 Oxygen Delivery Method Room Air 07/08/25 09:54 Const General: comfortable Limitations: physical limitations, ambulation with walker and wheelchair HEENT Head: Yes normocephalic Neck Neck: Yes supple Chest Chest palpation & inspection: normal inspection of the chest Resp Effort & Inspection: normal respiratory effort Auscultation: rales bilateral at the base, wheezes and diminished lung sounds Cardio Heart sounds: S1 normal heart sound present, S2 normal heart sound present and Murmur heart sound present GI Palpation (GI): Soft to palpation Skin General skin exam: no rashes or lesions noted Extrem General: No clubbing and No cyanosis Assessment & Plan Assessment & Plan (1) Bronchiectasis: Code(s): J47.9 - Bronchiectasis, uncomplicated Category: Medical Qualifiers: Bronchiectasis type: uncomplicated Qualified Code(s): J47.9 - Bronchiectasis, uncomplicated (2) Pulmonary nodules: Code(s): R91.8 - Other nonspecific abnormal finding of lung field Category: Medical (3) ILD (interstitial lung disease): Code(s): J84.9 - Interstitial pulmonary disease, unspecified Category: Medical (4) Asthma: Code(s): J45.909 - Unspecified asthma, uncomplicated Category: Medical Qualifiers: Asthma complication type: uncomplicated Asthma persistence: persistent Asthma severity: moderate Qualified Code(s): J45.40 - Moderate persistent asthma, uncomplicated (5) Pre-op chest exam: Code(s): Z01.811 - Encounter for preprocedural respiratory examination Category: Medical Plan CPT with acapella valve Overnight oximetry pending TIFFANY as needed VBG with mild high PCO2 51mmHg CT chest to reassess pulmonary nodules-nodules resolvd, but pulmonary fibrosis slightly more prominant Barium swallow-normal Needs to sleep with head of bed elevated with wedge start Wixela daily High risk for perioperative pulmonary complications, including: atelectais, hypoxia, hypercarbia and pneumonia. Medically optimized from a pulmonary standpoint and may proceed to consent for anesthesia and semi elective vascular surgery at this time. F/U 4 months Medications: New fluticasone propion-salmeterol 250-50 mcg/dose (Wixela Inhub) 1 inh inhalation Q12H 60 ea 11RF 30 days Coding Level of Care Code Est Pt Level 5 (23548) Diagnoses Bronchiectasis without complication J47.9 Bronchiectasis type: uncomplicated Pulmonary nodules R91.8 ILD (interstitial lung disease) J84.9 Moderate persistent asthma without complication J45.40 Asthma complication type: uncomplicated Asthma persistence: persistent Asthma severity: moderate Pre-op chest exam Z01.811 Time Spent (min) 45
[2025-07-08 09:54] VITALS: BP 154/66; PULSE 93; O2SAT 95
--- OUTSIDE RECORDS SUMMARY | 2025-07-08 10:34 | XMS_ITS | Clinical Summary ---
Author Organization [facility] Address [address] [place] [address] Care Team Providers Care Heavy Machinery Assembler Name Role Phone Sonu Shen MD Primary Care Provider [phone] Social History Tobacco Use Types Packs/Day Years [...] es 65 and older) 2006 RSV Vaccine 50 years and old er and Patients (1 - 1-dose 75+ series) 2016 Influenza Vaccine 04/03/2025 COVID-19 Vaccine ( - 2023-2 5 season) 2025 Hepatitis B Vaccines Aged Out No long er eligible based on patient's age to complete this topic Insurance [facility] [employer] on file [place] [id number] Care Teams Heavy Machinery Assembler Relationship Specialty Start Date End Date Sonu Shen MD [place] [address] PCP - General 06/13/23
--- OUTSIDE RECORDS SUMMARY | 2025-07-08 10:34 | XMS_ITS | Clinical Summary ---
Author Organization [facility] Address [address] [place] [address] Care Team Providers Care Builder Beam Name Role Phone Sonu Shen MD Primary [...] age to complete this topic Care Teams Builder Beam Relationship Specialty Start Date End Date Sonu Shen MD PCP - General Internal Medicine 02/06/19
--- OUTSIDE RECORDS SUMMARY | 2025-07-08 10:34 | XMS_ITS | Data Portability ---
Author Organization [place] - [facility], Allergy Address [address] [address] Care Team Providers Care Substitute Teacher Name Role Phone FELIPE CROOK Primary Care Provider [phone] Assessment Encounter Date Assessment Date Assessment LastModified [...] GERD. Will consider referral to gastroenterology for bed bug exterminator management if symptoms do not improve. The patient will follow up in 8 weeks for reevaluation. [email or web address] Not available 10/13/2024 13:25:30 01/05/2025 01/05/2025 84-year-old mykel fritz with GERD presents with AUTO CLAIM REPRESENTATIVE for evaluation of chronic productive cough x3 months. She reports significant symptom improvement with Omeprazole for 6 weeks, although she continues to report intermittent heartburn. She denies dysphagia, globus, itchy throat, or postnasal drip. Oropharyngeal exam is benign today. I will refer to gastroenterology for shelter management as the symptoms are gastrointestinal in etiology. She will continue the PPI as needed in the interim. The patient will follow up in our office as needed. [email or web address] Not available 01/05/2025 14:13:19 06/29/2025 06/29/2025 85-year-old mykel fritz presents for updated audiometric testing and evaluation of rhinorrhea. Audiometric testing obtained today shows stable sensorineural hearing loss bilaterally. Continue yearly audiometric testing. May follow-up sooner for acute changes in hearing. In regard to postnasal drip and congestion this seems most consistent with vasomotor rhinitis rather than sinusitis. Recommended Atrovent and instructed her in proper use. She will follow-up in 2 months for reevaluation. Could consider nasal endoscopy versus sinus imaging if she has persistent postnasal drip. All questions were answered. [email or web address] Not available 06/29/2025 10:31:21 Plan of Treatment Reminders Order Date Submit Date Provider Last Modified By Organization Details Last Modified Time Details Appointments Estab hcucky villanueva 15 2025 09:15A M DON CROUCH PA-C Not available Not available Not available Lab None recor ded. Referral gastr steve montes de oca isfartun refer ral 2024 [facility] Gastroenterology Scheduling Department, [address] [place], [address], 01/12/2025 14:42:12 Procedures None recor ded. Surgeries None recor ded. Imaging None recor ded. Medication Orders iprat ropiu ariel basilio de 21 mcg (0.03 %) nasal spray 2024 [id number], [address] [place], [place], [id number], 06/29/2025 10:32:35 omepr azole 20 mg capsu bryan layed relea se 2024 025 [id number], [address] [place], [place], [id number], 10/13/2024 13:19:18 Patient TargetsNo targets recorded. Patient InstructionsNo instructions recorded. Reason for Referral Dog Control Officer Referral for Gastroesophageal reflux disease without esophagitis Referring Physician: Lea Pruitt, Otolaryngology, Encounter Date: 01/05/2025 Results Created Date Observation Date Name Description Value Unit Range Abnormal Flag Note LastModifiedBy Organization Detail LastModifiedTime 06/24/2006/23/2024 audio gram No observ ation record ed. [email or web address] [facility] [address], [place], [address], 06/24/2024 15:37:55 06/29/20 audio gram No observ ation record ed. BARCODE Not Available 2024 12:16:51 Result Notes None recorded. Problems Name Problem SNOMED Code Status Onset Date Resolution Date Notes Provider Name and Address Organization Details Recorded Time Impacted cerumen 59282897 Active 2014 Impacted cerumen; CMS Risk: low risk CMS Treatment : new problem (to examiner) : no additiona l workup planned Not Available [facility] 4 02:31:48 Impacted cerumen of bilateral ears 43818399634 40881 Active 2017 Impacted cerumen, bilateral ; Note: Date Diagnosed : 07/10/2018 2:11 PM (H61.23) Not Available [facility] 4 02:31:48 Dizziness and giddiness 159956572 Active 2017 Dizziness and giddiness ; Note: Date Diagnosed : 07/10/2018 2:37 PM (R42) Not Available [facility] 4 02:31:52 Sensorine ural hearing loss of bilateral ears 406141141 Active 2017 Sensorine ural hearing loss, bilateral ; Note: Date Diagnosed : 07/10/2018 2:37 PM (H90.3) Not Available [facility] 4 02:32:05 Cough 76061157 Active 2024 LEA PRUITT PA-C [address] [employer] [address], [place], [address] , [facility] - [facility] 5 12:55:28 Gastroeso phageal reflux disease without esophagit is 142288247 Active 2024 LEA PRUITT PA-C [address] [address], [place], [address] , [place] - [facility] [place] 13:25:45 Dysphagia 04196110 Active 2024 LEA PRUITT PA-C [address] [facility] [place],[address], [place], [address] , [facility] - [facility] [place] 13:37:10 Sensorine ural hearing loss of bilateral ears 713777568 Active 2024 MELONIE RODRIGUEZ, AUD [address] [facility] [place],[address] [address] [address], [place], [address] , [place] - [facility] [place] 09:58:28 Vasomotor rhinitis 5389678 Active 2024 DON CROUCH PA-C [address] [facility] [place],[address] [address] [address], [place], [address] , [facility] - [facility] 10:31:27 Problem Notes None recorded. Procedures Surgical History Date Name Laterality Status Provider Name and Address Organization Details Recorded Time 06/29/2025 Air & Speech Audio with Tymps - 53810, 17083 & 75622 completed MELONIE RODRIGUEZ BUCKY 100 [facility],[address], [address], [facility] - [facility] 06/29/2025 09:58:50 10/13/2024 FOL_Reflux_ JMS completed LEA PRUITT PA-C 100 [facility],[address], [address], [facility] - [facility] 10/13/2024 13:22:17 06/23/2024 Air & Speech Audio with Tymps - 72700, 61720 & 40877 completed RACHELLE STRINGER [facility] [place],[address], [address], [facility] - [facility] 06/23/2024 09:29:20 Imaging Results None recorded. Procedure Notes None recorded. Medical Equipment None Reported. Allergies Allergen ID Allergen Name Allergen Category Reaction Reaction Severity Criticality Documentation Date Start Date Code Code System Note Provider Name and Address Organization Details Recorded Time 43798 tetracycl ine medicatio n other Not available Not available 01/15/2024 52169 RxNorm React ion: Unkno wn; Not Available [facility] 01:05:21 Medications Name Sig Start Date Stop Date Status Note LastModified by Organization Details LastModified Time prednison e 10 mg tablet active Not Available Not Available Not Available clonidine 0.1 mg/24 hr weekly transderm al patch 2014 active Medicati on ID: [id number] Du ration Value: 28 Brand Name: clonidin [...] mg tablet 01/05 completed Medicati on ID: 547392 D uration Value: 10 Brand Name: meclizin [...] e 20 mg capsule,d elayed release TAKE 1 CAPSULE BY MOUTH DAILY 0.5 TO 1 HOUR BEFORE BREAKFAS T active Not Available Not Available No t Available ibuprofen 600 mg tablet TAKE 1 TABLET BY MOUTH THREE TIMES DAILY active Not Available Not Available No [...] Not Available Not Available No t Available ipratropi um bromide 21 mcg (0.03 %) nasal spray 2 sprays each nostril 1-3 times daily 2024 active Not Available Not Available Not Avai lable ramipril 10 mg capsule TAKE 2 CAPSULES BY MOUTH DAILY active Not Available Not Available No t Available amoxicill in 875 mg-potass ium clavulana te 125 mg tablet TAKE 1 TABLET BY MOUTH EVERY 12 HOURS FOR 10 DAYS 01/05 completed Not Available Not Available Not Available escitalop jorge 10 mg tablet 2014 active Medicati on ID: [id number] Du ration Value: 30 Brand Name: escitalo [...] completed Not Available Not Available Not Available diclofena c 1 % topical gel APPLY TOPICALL Y TO THE AFFECTED AREA FOUR TIMES DAILY DIRECTED active Not Available Not Available No t Available OptiChamb er Saba C spacer USE WITH INHALER DIRECTED active Not Available Not Available No t Available Vitals Date Recorded Body height Body mass index (BMI) Body weight Provider Name and Address Organization Details Last Updated DateTime 10/13/2024 165.1 cm 30.6 kg/m2 95624 g Gloria Turner [place] - [facility] 10/13/2024 12:51:45 Date Recorded Body height Body mass index (BMI) Body weight Provider Name and Address Organization Details Last Updated DateTime 01/05/2025 165.1 cm 30 kg/m2 95059.63 g Noni Downey [facility] 01/05/2025 13:31:16 Date Recorded Body height Body mass index (BMI) Body weight Provider Name and Address Organization Details Last Updated DateTime 06/23/2024 165.1 cm 30.6 kg/m2 99854 g Doreen Reyes [facility] 06/23/2024 09:35:20 Date Recorded Body height Body mass index (BMI) Body weight Provider Name and Address Organization Details Last Updated DateTime 06/29/2025 165.1 cm 30 kg/m2 05326.63 g Noni Downey [facility] 06/29/2025 10:05:58 Social History None recorded. Functional Status None recorded. Mental Status None recorded. Family History Nothing Reported. Medical History No medical history recorded. Gynecological HistoryNo gynecological history recorded. Obstetrics History GPAL:G 0 P 0 0 0 0 Past Encounters Encounter ID Performer Location Encounter Start Date Encounter Closed Date Diagnosis/Indication Diagnosis SNOMED-CT Code Diagnosis ICD10 Code Diagnosis IMO Codes Diagnosis Note [id number] LIAM MCPHERSON MD [facility] [address] [address] 06/23/2024 09:04:42 06/23/2024 09:50:48 Sensorineural hearing loss of bilateral ears 169199422 H90.3 Hearing is stable and fairly symmetric. I discussed hearing aids but she was not interested today because she just went through a divorce and it is a difficult time. I recommend a repeat audio in 1 year and we will consider hearing aids at that time. Impacted c erumen of bilateral ears 0532785591 883376 H61.23 Recurrent Cerumen Impactions : Ears were meticulous ly cleaned bilaterall y today with a curette and suction. The patient tolerated this well and will follow up for repeat debridemen t per routine. [id number] BUCKY TORREZ [facility] [address] [address] 06/23/2024 09:28:58 06/23/2024 16:25:42 Sensorineural hearing loss of bilateral ears 054043454 H90.3 Audiologic al evaluation results: Right ear: Normal sloping to moderately -severe sensorineu ral hearing loss with excellent word recognitio n. Left ear: Normal sloping to severe sensorineu ral hearing loss with excellent word recognitio n. Tympanomet ry: Right Ear:Type A Left Ear:Type A [id number] LEA PRUITT PA-C [facility] [address] [address] 10/13/2024 12:33:22 10/13/2024 13:18:07 Cough 76044558 R05.9 Gastroesop hageal reflux disease without esophagitis 397614822 K21.9 [id number] LEA PRUITT PA-C [facility] [address] [address] 01/05/2025 13:05:55 01/05/2025 13:49:12 Gastroesophageal reflux disease without esophagitis 356548524 K21.9 [id number] DON CROUCH PA-C [facility] [address] [address] 06/29/2025 09:18:40 06/29/2025 10:15:02 Vasomotor rhinitis 1253376 J30.0 45949 Sensorineu ral hearing loss of bilateral ears 427198035 H90.3 57919784 [id number] BUCKY MIXON [facility] [address] [place] [address] 06/29/2025 09:57:34 06/30/2025 10:22:26 Sensorineural hearing loss of bilateral ears 463258822 H90.3 [id number] Right Ear:Normal hearing through 1K Hz sloping to a severe SNHL with excellent speech discrimina tion.Left Ear:Normal hearing through 1K Hz sloping to a severe SNHL with excellent speech discrimina tion. Health Concerns Section Related Observation LastModified by Organization Detai ls LastModified Time None Recorded Concern Status LastModified by Organization Details LastModified Time None Recorded Advance Directives Directive None Recorded Payers Insurance Date Sequence Insurance Name Policy Number Policy Hwang Covered Member ID Hwang Member ID Guarantor Name 06/29/2025 1 [place] [employer] Shavonne Bruner [id number] Shavonne Bruner 06/30/2025 2 BC[employer] (PP[place]) [id number] Shavonne Bruner [id number] Shavonne Bruner Notes Date Note Type Note Provider Name and Address Organization Details Recorded Time 06/23/2024 text/html Audiological Evaluation HPIReported by PatientHearing LossFor hearing loss perceived, patient reportshearing loss in both ears (no differences noted between ears)but reportsgradual onset.Use of amplification or other hearing devicesFor use of amplification or other hearing devices, patient reportsnone (does not use amplification). BUCKY TORREZ [address], [address], [facility] - [facility] 06/23/2024 09:30:06 06/23/2024 text/html ROS as noted in the HPI concern for right hearing lossShe presents for concern of right hearing loss. Audio showed normal sloping to severe SNHL AU very slightly worse in the mid range frequencies AU. We repeated an audio today which was stable. LIAM MCPHERSON MD 100 [facility],[address] [address], [place], [address], [place] - [facility] 06/23/2024 09:52:07 10/13/2024 text/html ROS as noted in the [facility] 84yo female with history of GERD presents [...] throat, postnasal drip. DHAVAL CHAU MD 100 [facility] [place],[address], [address], [facility] - [facility] 10/14/2024 09:35:02 01/05/2025 text/html ROS as noted in the [facility] 84-year-old female with history of GERD presents with AUTO CLAIM REPRESENTATIVE for evaluation of chronic productive cough x3 months. She trialed omeprazole for 6 weeks and reports significant improvement in throat discomfort and coughing. She reports intermittent heartburn. She uses apple cider vinegar as needed for unknown reason. She denies dysphagia, globus, itchy throat, postnasal drip. MANDA LOPEZ MD 100 [facility],[address], [address], [facility] 01/06/2025 08:56:22 06/29/2025 text/html ROS as noted in the [facility] 85-year-old female presents for yearly hearing test. She also has concerns about sinus infections. She states that last year she had a significant sinus infection which was treated with steroid. 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 She is concerned that she may be developing another sinus infection. She states she has frequent postnasal drip and nasal congestion which becomes worse with meals. No pain or pressure in her face or purulent rhinorrhea. No fever. Previously trialed Flonase which was not beneficial. ROGERS NINO MD [address], [address], [facility] 06/29/2025 12:33:09 OBGyn Episode No OBEpisode recorded.
--- OUTSIDE RECORDS SUMMARY | 2025-07-08 10:34 | XMS_ITS | Data Portability ---
Author Organization [facility], PA[facility] Address [address] [place] [address] Care Team Providers Care Medical Care Administrator Name Role Phone FELIPE CROOK Primary Care Provider [phone] Assessment Encounter Date Assessment Date Assessment LastModified by Organization Details LastModified Time 06/30/2015 06/30/2015 Shavonen Bruner i s a 75 year old [...] call for an appointment .She needs a vacuum truck driver on the day of the procedure. [...] appointment has been made .She needs a vacuum truck driver on the day of the procedure. [...] By Organization Details Last Modified Time 06/30/2015 [id number] She was advised against bed rest lasting longer than four days and to continue activities as tolerated. [email or web address] Not available 06/30/2015 15:51:35 10/27/2024 [id number] She was advised against bed rest lasting longer than four days and to continue activities as tolerated. [email or web address] Not available 10/27/2024 14:02:29 12/24/2024 [id number] She was advised against bed rest lasting longer than four days and to continue activities as tolerated. [email or web address] Not available 12/24/2024 11:05:07 02/02/2025 [id number] She was advised against bed rest lasting longer than four days and to continue activities as tolerated. [email or web address] Not available 02/02/2025 10:48:01 Reason for Referral None Reported. Problems Name Problem SNOMED Code Status Onset Date Resolution Date Notes Provider Name and Address Organization Details Recorded Time Spinal stenosis of lumbar region 49893491 Rosina jones MD [address] [employer] , [address], [place], [address], [place] [facility] 5 16:04:15 Displacement of lumbar intervertebral disc without myelopathy 28239306 Rosina jones MD [address] , [address], [place], [address], [place] [facility] 5 16:04:15 Lumbosacral spondylosis without myelopathy 82700964 Active Ankit jones MD [address] [facility] [address], [place], [address], [place] [facility] 5 16:04:15 Lumbosacral radiculitis 85397139 Active Ankit jones MD [address] [facility] , [address], [place], [address], [place] [facility] 5 16:04:15 Problem Notes None recorded. Procedures Surgical History Date Name Laterality Status Provider Name and Address Organization Details Recorded Time 12/25/19 25 Lumbar Epidural steroid injection under fluoroscopic guidance completed Ankit Carroll MD [address] [facility] [address], [place], [address], [place] [facility] 12/24/2024 11:03:36 [...] 105 /min 93 % 93 % 1 47550.4 4 g 28.7 kg/m2 167.64 cm 183/76 [...] Updated DateTime 5 97 % 97 % 54692.5 2 cm 105 /min 174/84 mm[Hg] Renuka Tavareszier [place] [facility] 5 14:47:16 Social History Question Answer Notes LastModified by Organizat ion Details LastModified Time Tobacco Smoking Status Never Smoker Not Available [facility] 06/18/2020 03:16:10 Do You Have An Advance [...] Or Recreational Drugs Have You Used? No [id number] Information not available 06/18/2020 Education 2 Year College Information not available 10/27/2024 What Is The Highest Grade Or Level Of School You Have Completed Or The Highest Degree You Have Received? [id number] Information not available 10/27/2024 How Many Days [...] is your level of alcohol consumption? None [id number] Information not available 06/18/2020 Are you currently employed? No [id number] Information not available 06/18/2020 Do you have difficulty doing errands alone? Yes Information not available 10/27/2024 Do you have difficulty dressing, bathing, grooming, or toileting? Yes Information not available 10/27/2024 Mental Status Question Answer Note LastModified by Organizat ion Details LastModified Time Do you feel stressed (tense, restless, nervous, or anxious, or unable to sleep at night)? [id number] Information not available 10/27/2024 Do you have [...] ICD10 Code Diagnosis IMO Codes Diagnosis Note [id number] Ankit Carroll MD PAIN OFFICE [address] [place] [address] 06/30/2015 14:19:17 06/30/2015 16:04:51 Displacement of lumbar intervertebral disc without myelopathy 13866104 M51.26 Lumbosacra l radiculitis 11616275 M54.17 Lumbosacra l spondylosis without myelopathy 75974012 M47.817 Spinal von nosis of lumbar region 05768971 M48.06 [id number] Ankit Carroll MD PAIN OFFICE [address] [place] [address] 10/27/2024 10:54:33 10/27/2024 14:34:22 Lumbar radiculopathy 014828242 M54.16 Degenerati on of lumbar intervertebral disc 51041518 M51.369 Spinal von nosis of lumbar region 44985939 M48.062 [id number] Ankit Carroll MD PAIN OFFICE [address] [place] [address] 12/24/2024 09:22:33 12/24/2024 16:01:34 Lumbosacral radiculitis 55261779 M54.17 Lumbar radiculopathy 128 834668 M54.16 Degenerati on of lumbar intervertebral disc 73109081 M51.369 Spinal von nosis of lumbar region 34936554 M48.062 [id number] Ankit Carroll MD PAIN OFFICE [address] [place] [address] 02/02/2025 09:51:34 02/02/2025 15:23:49 Lumbar radiculopathy 341161250 M54.16 Degenerati on of lumbar intervertebral disc 43279223 M51.369 Spinal von nosis of lumbar region 22226367 M48.062 Health Concerns Section Related Observation LastModified by Organization Detai ls LastModified Time None Recorded Concern Status LastModified by Organization Details LastModified Time None Recorded Advance Directives Directive Y: son Payers Insurance Date Sequence Insurance Name Policy Number Policy Hwang Covered Member ID Hwang Member ID Guarantor Name 02/01/2025 2 [place]) [id number] Shavonne Bruner [id number] Shavonne Bruner 02/01/2025 1 [place] B-[place]: [employer] Shavonne Bruner [id number] Shavonne Bruner Notes Date Note Type [...] feels pt aggravated her pain.). For previous home health care respiratory therapist, patient reportshelped temporarily. For location, (shavonne bruner is a 75 year old woman with complaints of low back pain which started in november 2014.). For context, (she has been helping with care of family members and feels this may have contributed to the start of her low back pain.). Ankit aCrroll MD [address] [facility] , [address], [place], [address], [facility] 07/01/2015 09:03:03 10/27/2024 text/html Shavonne Bruner is a 84 year old woman with complaints of low back pain. She is accompanied by her ELECTRONIC COMPONENT PROCESSOR today. She is using a walker. She [...] bowel incontinence.Her most recent MRI was at [facility] shows multilevel degenerative disc changes with spinal stenosis most severe at L3-4 level.She has done phsyical therapy in the past which did not help her pain Ankit Carroll MD [address] [facility] , [address], [place], [address], [facility] 10/27/2024 14:48:18 12/24/2024 text/html She is here for a trial of lumbar epidural steroid injection under fluoroscopic guidance. Ankit Carroll MD [address] [facility] , [address], [place], [address], [facility] 12/24/2024 16:11:39 02/02/2025 text/html Shavonne [...] incontinence of bowel. Ankit Carroll MD [address] [facility] , [address], [place], [address], [facility] - [facility] Management 02/02/2025 15:47:36 OBGyn Episode No OBEpisode recorded.
--- OUTSIDE RECORDS SUMMARY | 2025-07-08 10:34 | XMS_ITS | Clinical Summary ---
Author Organization [facility] Address [address] [place] [address] Phone Care Team Providers Care Principal Research Economist Name Role Phone Felipe Crook MD Primary Care Provider [phone] Allergies No known active allergies Medications albuterol [...] hips 02/25/2025 Hypertension 02/25/2025 Back pain 02/25/2025 Surgical History Surgery Date Site/Laterality Comments KIDNEY [...] Procedure Name Priority Date/Time Associated Diagnosis Comments COMPREHENSIVE METABOLIC PANEL STAT 02/25/2025 5:24 AM EDT [facility] DEXA AXIAL SKELETON Routine 09/29/2021 10:06 AM EST Encounter for screening for osteoporosis from Last 3 Months or Most Recently Relevant to Health Maintenance Results * (ABNORMAL) Comprehensive metabolic panel (02/25/2025 5:24 [...] unit/L LAB CHEMISTRY METHOD 02/25/2025 6:05 AM [facility] ALT (SGPT) 20 10 - 60 unit/L LAB CHEMISTRY METHOD 02/25/2025 6:05 AM [facility] Alkaline Phosphatase 82 42 - 121 unit/L LAB CHEMISTRY METHOD 02/25/2025 6:05 AM [facility] Total Protein 6.1 6.0 - 8.0 g/dL LAB CHEMISTRY METHOD 02/25/2025 6:05 AM [facility] Albumin 3.1(L) 3.2 - 5.0 g/dL LAB CHEMISTRY METHOD 02/25/2025 6:05 AM [facility] Total Bilirubin 0.4 0.0 - 1.4 mg/dL LAB CHEMISTRY METHOD 02/25/2025 6:05 AM EDT [facility] Blood Venous blood specimen / Unknown Venipuncture / Unknown 02/25/2025 5:24 AM EDT 02/25/2025 5:29 AM EDT us Tate Nagy MD LAB BLOOD ORDERABLES Final Result [facility] [address] [place] [address], * [facility] DEXA AXIAL SKELETON (09/29/2021 10:06 AM EST) Anatomical Region Laterality Modality Mammography 09/29/2021 8:53 AM EST Narrative 09/29/2021 10:06 AM EST [facility] Diagnostic Imaging Department [address] [place] [address] Patient: OVIDIORILEY Kenia Ernandez/Age/Sex: 1940 - 81 - F Unit#: [id number] Location/Status: [facility] Mnemonic/Ordering Site[facility] Ordering Physician: FELIPE CROOK MD [facility] Dexa Axial Skeleton - 09/29/21924 HISTORY: The [...] probability of hip fracture of 14.2%. Code 73634 Dictating Physician: ROSA ROCHA MD Electronically Signed by: ROSA RCOHA MD Dic Date/Time: 09/29/21 1005 Sign date/Time: 09/29/21 1006 Procedure Note Rosa Rocha MD - 08/23/2022 [facility] Diagnostic Imaging Department [address] [place], [place] [id number] Patient: RILEY NOLAN Kenia HinesB./Age/Sex: 1940 - 81 - F Unit#: [id number] [facility] Ordering Physician: FELIPE CROOK MD [facility] Dexa Axial Skeleton - 09/29/2175 HISTORY: The patient is an 81-year-old postmenopausal [...] density of the femurs bilaterally is 0.687 gm/nq1bdtky is 68% of that of young normals [...] probability of hip fracture of 14.2%. Code 99730 Dictating Physician: ROSA ROCHA MD Electronically Signed by: ROSA ROCHA MD Dic Date/Time: 09/29/21 1005 Sign date/Time: 09/29/21 1006 Felipe Crook MD IMG BI PROCEDURES Final Result from Last 3 Months or Most Recently Relevant to Health Maintenance Insurance MEDICARE [facility] Advance Directives * Full Code - Confirmed (Latest Code Status on File) Date Activated Date Inactivated Comments 02/24/2025 9:48 PM 02/25/2025 7:[address] [facility] was ascertained in the following way: Code status discussion: discussion with patient To update the patient's code status, place a code status order. Do not modify or discontinue any currently active code status orders. Care Teams Principal Research Economist Relationship Specialty Start Date End Date Felipe Crook MD [address] [place] [id number] PCP - General Internal Medicine 02/06/19
== END 2025-07-08 10:27 | disposition home or self-care (01) ==
PROVIDERS: PCP Internal Medicine; Visit Provider Hospitalist
DX: J47.9 Bronchiectasis, uncomplicated (principal); R91.8 Other nonspecific abnormal finding of lung field; J84.9 Interstitial pulmonary disease, unspecified; J45.40 Moderate persistent asthma, uncomplicated; Z01.811 Encounter for preprocedural respiratory examination
CPT/HCPCS: 99215

== ENCOUNTER → 2025-07-08 09:28 | Outpatient (BNVA) | payer MEDICARE, SELFPAY | PROVIDERS: PCP Internal Medicine; Visit Provider Hospitalist | DX: Z01.811 Encounter for preprocedural respiratory examination (principal); I77.9 Disorder of arteries and arterioles, unspecified; J45.40 Moderate persistent asthma, uncomplicated; R91.8 Other nonspecific abnormal finding of lung field; J47.9 Bronchiectasis, uncomplicated; J84.9 Interstitial pulmonary disease, unspecified | CPT/HCPCS: 99212 ==